=== PATIENT | female | born 1985 | race Caucasian/White ===

== ENCOUNTER 2016-12-03 12:14 | Emergency (ER) | payer OTHER ==
[~2016-12-03] VITALS: Ht 154.9 cm; Wt 88.5 kg
[~2016-12-03 12:14] MED LIST: BENZONATATE100 MG PO; CELEXA20 MG PO; CIPRO 500MG TA500 MG PO; DARVOCET-N 1001 EACH PO; ETODOLAC200 MG PO; IBUPROFEN800 MG PO; METHYLPRED DP4 MG PO; NAPROSYN 500MG500 MG PO; PHENTERMINE H37.5 MG PO; PROMETHAZINE D120 ML PO; VENTOLIN H0.09 MG/AC IH; VOLTAREN75 MG PO
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
--- OUTSIDE RECORDS SUMMARY | 2016-12-03 12:25 | External Medical Summary Rpt ---
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 Unavailable Unavailable CENTER, [facility]available Unavailable CENTER, [facility] Unavailable Unavailable INC, [facility] Unavailable Unavailable HOSPITAL, [facility] AGUILLON SURJIT, AGUILLON SURJIT Unavailable Unavailable [facility], Unavailable Unavailable [facility], [facility], Unavailable Unavailable [facility], Unavailable Unavailable [facility] Unavailable Unavailable SERVICES, [facility] O'LESLYE FABIANA, O'LESLYE Unavailable Unavailable [facility], Unavailable Unavailable [facility], [facility] Unavailable Unavailable LAB, [facility] PICKLESIMER JR RENATE, Unavailable Unavailable PICKLESIMER JR RENATE PICKLES[facility] JR RENATE, Unavailable Unavailable [facility] RENUSCH ERIKA, RENUSCH Unavailable Unavailable ERIKA [facility] Unavailable Unavailable [id number] [address] [phone], [facility] [id number] # [phone] SCHULSTAD JENIFFER, Unavailable Unavailable SCHULSTAD JENIFFER SCHULSTAD JENIFFER, Unavailable Unavailable SCHULST[facility] JENIFFER SCIFRES ANG, SCIFRES Unavailable Unavailable ANG SCIFRES ANG, SCIFRES Unavailable Unavailable ANG [facility] Unavailable Unavailable [facility] [place], [facility] [place] Purpose Continuity of Care Document - 03-04-2010 through 2016 Problems Code Diagnosis DOS Provider Status Z0100 ENCOUNTER 01-31-2016 [facility] EXAM EYES & GRE VISION W/O ABNORMAL FIND [id number] PAIN IN 01-13-2016 [place] LEFT ANKLE [facility] M7989 OTHER 01-13-2016 [place] SPECIFIED MEDICAL SOFT TISSUE IMAGING ASS DISORDERS [id number] SPRAIN UNS 01-13-2016 [facility], LEFT ANKLE PLLC INITIAL ENCOUNTER J029 ACUTE 06-16-2015 [facility] PHARYNGITIS PHYSICIANS GROUP UNSPECIFIED J209 ACUTE 06-16-2015 [facility] BRONCHITIS PHYSICIANS UNSPECIFIED GROUP J40 BRONCHITIS 06-16-2015 [facility] NOT PHYSICIANS, SPECIFIED PLLC ACUTE OR CHRONIC R05 COUGH 06-16-2015 [facility] R0602 SHORTNESS 06-16-2015 [place] OF BREATH [facility]ICAL [facility]ING ASS E6609 OTHER 06-05-2015 [facility] OBESITY DUE PHYSICIANS TO EXCESS GROUP CALORIES N926 IRREGULAR 06-05-2015 [facility] MENSTRUATIO PHYSICIANS N GROUP UNSPECIFIED R635 ABNORMAL 06-05-2015 [facility] WEIGHT GAIN PHYSICIANS GROUP J0190 ACUTE 03-06-2015 [facility] SINUSITIS [facility] 92508 OBESITY, 01-19-2015 [facility] UNSPECIFIED PHYSICIANS GROUP 4279 UNSPECIFIED 01-19-2015 [facility] CARDIAC PHYSICIANS DYSRHYTHMIA GROUP V5869 LONG-TERM 01-19-2015 [facility] (CURRENT) PHYSICIANS USE OF GROUP OTHER MEDICATIONS 3671 MYOPIA 12-19-2014 [facility] 20499 NAUSEA 09-18-2014 [facility] ALONE PHYSICIANS GROUP 44379 DIARRHEA 09-18-2014 [facility] 25594 OTHER 05-18-2014 BHARGAV CURRAN VITREOUS OPACITIES V720 EXAMINATION 10-18-2013 [facility] OF EYES GRE AND VISION V7231 ROUTINE 06-21-2013 [facility] JR RENATE AL EXAMINATION 78069 UNSPECIFIED 05-24-2013 STARR DUSTIN CONSTIPATIO N 7831 ABNORMAL 05-24-2013 [facility] DUSTIN WEIGHT GAIN 05618 ABDOMINAL 04-19-2013 ST[facility] DUSTIN PAIN, LEFT LOWER QUADRANT 72422 ABDOMINAL 03-29-2013 SCHULSTAD PAIN, JENIFFER UNSPECIFIED SITE 7802 SYNCOPE AND 03-24-2013 FALLUJI JESSICA COLLAPSE 37007 DIVERTICULO 03-23-2013 JU[facility]ON SIS OF JOSE COLON 5920 CALCULUS OF 03-23-2013 [facility] KIDNEY JOSE 36340 OTHER 03-23-2013 JUDSON NONSPECIFIC JOSE ABNORMAL FINDING OF LUNG FIELD V1272 PERSONAL 03-08-2013 SCHULSTAD HISTORY OF JENIFFER COLONIC POLYPS V160 FM HX 03-08-2013 SCHULSTAD MALIGNANT JENIFFER NEOPLASM GASTROINTES TINAL TRACT 93762 ABDOMINAL 03-07-2013 ARNOLD NISREEN PAIN, GENERALIZED 6260 ABSENCE OF 02-23-2013 [facility] 7231 CERVICALGIA 09-01-2012 JUDSON JOSE 8470 NECK SPRAIN 09-01-2012 [facility] E8889 UNSPECIFIED 09-01-2012 JUDSON FALL JOSE 6264 IRREGULAR 07-21-2012 ST[facility] DUSTIN MENSTRUAL CYCLE 2113 BENIGN 06-17-2012 SCH[facility]STAD NEOPLASM OF JENIFFER COLON 02410 UNSPECIFIED 04-21-2012 RO DUSTIN VAGINITIS AND VULVOVAGINI TIS 57684 OTHER 01-01-2011 RUFINA CHRONIC VISION ALLERGIC CONJUNCTIVI TIS V2511 ENC FOR 04-12-2010 [facility] [place] CONTRACEPT DEVICE 2662 OTHER 03-22-2010 [facility]ICIEN[facility] S V2509 OTH GENERAL 03-22-2010 [facility] HEALTH CNSL&ADVICE CENTER CONTRACEPT MANAGEMENT V7643 SCREENING 03-22-2010 [facility] NEOPLASM OF THE SKIN 486 PNEUMONIA, 03-04-2010 [facility] UNSPECIFIED SERVICES 5110 PLEURISY 03-04-2010 [facility] WITHOUT EMERGENCY MENTION SERVICES EFFUS/[place] [address] CHEST PAIN 03-04-2010 [place] UNSPECIFIED [facility]ICAL IMAGING ASS J40 BRONCHITIS, NOT [...] 80 1- 1- 00 04 KE ve ND 01 20 20 AI AM 10 11 11 D DE 1 PH RE HB AR K R MA J 40 CY MG 03 93 TA 8 BL # ET 03 93 00 10 10 12 3 RI 85 GA Ac 60 -2 -2 .0 TE 55 IN ti 35 6- 7- 00 91 EY ve 46 20 20 AI 82 10 10 D WV 8 PH CH AR AE MA L CY S 03 93 8 # 03 93 CI 65 10 10 14 7 RI 85 GA Ac ND 86 -2 -2 .0 TE 55 IN ti OF 20 6 7- 00 92 EY ve LO 07 20 20 AI XA 70 10 10 D WV CI 1 PH CH N AR AE HC MA L L CY S 50 0 03 MG 93 8 TA # B 03 93 DI 00 10 10 14 7 RI 85 GA Ac CL 78 -2 -2 .0 TE 55 IN ti OF 11 6 7- 00 93 EY ve EN 78 20 20 AI AC 90 10 10 D WV 1 PH CH SO AR AE D [...] Procedure DOS Code Location Performer Comment OPH 38472 [facility] 6 GRE GRE XM&EVAL COMPRHNSV ESTAB PT 1/> CRTS E0114 ADVANCED CHEW UNDARM 6 TECHNOLOG NANCY OTH THAN IES INC WOOD PAIR PAD TIP&HNDGR IP RADEX 05688 [place] JUDS[facility] ANKLE 6 MEDICAL JOSE COMPLETE IMAGING MINIMUM 3 ASS VIEWS THERAPEUT 41724 [facility] IC 6 PHYSICIAN RIMA PROPHYLAC S GROUP TIC/DX INJECTION SUBQ/IM PRESSURIZ 76592 [facility] ED/NONPRE 6 [facility] SSURIZED INC INC INHALATIO N TREATMENT RADIOLOGI 47017 [facility] C EXAM 6 [facility] CHEST 2 INC INC VIEWS FRONTAL&L ATERAL INJECTION J0696 [facility] 6 PHYSICIAN RIMA CEFTRIAXO S GROUP NE SODIUM PER 250 MG INJECTION J1040 [facility] 6 PHYSICIAN RIMA METHYLPRE S GROUP DNISOLONE ACETATE 80 MG IAADI 64701 [facility] ROB INFLUENZA 6 [facility] B VIRUS INC INC IAADI 82416 [facility] INFFLUENZ 6 [facility] A A VIRUS INC INC RADIOLOGI 32442 [place] GARCIA ALL C 6 MEDICAL EXAMINATI IMAGING ON CHEST ASS SINGLE VIEW FRONTAL URINE 08862 [facility] RO 6 PHYSICIAN DUSTIN TEST S GROUP VISUAL COLOR CMPRSN METHS OPHTH 03758 [facility] 5 GRE GRE XM&EVAL COMPRHNSV ESTAB PT 1/> DETERMINA 85460 [facility] GRE GRE REFRACTIV E STATE OPHTH 03960 [facility] 4 GRE GRE XM&EVAL COMPRHNSV ESTAB PT 1/> URNLS DIP 44321 RO STARR 4 DUSTIN DUSTIN STICK/TAB LET RGNT NON-AUTO W/O MICRSCP CYTP C/V 78159 PICKLESIM PICKLESIM AUTO THIN 4 ER JR RENATE ER JR RENATE LYR PREPJ SCR MNL RESCR PHYS LOCM Q9967 [facility] [phone] 3 [facility] MG/ML INC INC IODINE CONCENTRA TION PER ML 3D 65519 JU[facility] JUDSON RENDERING 3 JOSE JOSE W/INTERP& [place] [address] JUDSON JUDSON ABDOMEN & 3 JOSE JOSE PELVIS W/CONTRAS T MATERIAL GONADOTRO 92791 [facility] PIN 3 [facility] CHORIONIC INC INC QUALITATI VE RADEX 47191 [facility] SPINE 3 [facility] CERVICAL INC INC 4 OR 5 VIEWS RADEX 22576 J[facility] JUDSON SPINE 3 JOSE JOSE CERVICAL 6 OR MORE VIEWS OPHTH 12754 [facility] MEDICAL 3 GRE GRE XM&EVAL COMPRE NEW PT 1/> VST DETERMINA 79486 [facility] TION 3 GRE [place] [address] ROGER DURAN 3 JENIFFER JENIFFER W/REMOVAL [place] [address] PICKLESIM PICKLESIM SURG 3 ER JR RENATE ER JR RENATE PATHOLOGY GROSS&RIMA ROSCOPIC EXAM IMHISTOCH 83519 PICKLESIM PICKLESIM EM/CYTCHM 3 ER JR RENATE ER JR RENATE 1ST ANTIBODY STAIN PROCEDURE URINE 62902 RO STARR 3 DUSTIN DUSTIN TEST VISUAL COLOR CMPRSN METHS CYTP C/V 55700 PICKLESIM PICKLESIM AUTO THIN 3 ER JR RENATE ER JR RENATE LYR PREPJ SCR MNL RESCR PHYS URNLS DIP 61176 RO STARR 3 DUSTIN DUSTIN STICK/TAB LET RGNT NON-AUTO W/O MICRSCP SMR PRIM 64584 RO [facility]ARR SRC WET 2 DUSTIN DUSTIN MOUNT NFCT AGT OPHTH 76661 SCIFRES SCIFRES MEDICAL 2 ANG ANG XM&EVAL COMPRHNSV ESTAB PT 1/> DETERMINA 68936 SCIFRES SCIFRES TION 2 ANG ANG REFRACTIV E STATE URNLS DIP 12011 RO STARR 1 DUSTIN DUSTIN STICK/TAB LET RGNT NON-AUTO W/O MICRSCP CYTP C/V 55065 PATHOLOGY PATHOLOGY AUTO THIN 1 & & LYR CYTOLOGY CYTOLOGY PREPJ SCR LAB LAB MNL RESCR PHYS OPHTH 90019 RUFINA D[facility]ANT [facility] 1 VISION ANG XM&EVAL INTERMEDI ATE ESTAB PT OPHTH 95590 RUFINA AGUILLON [facility] 1 VISION XM&EVAL COMPRE NEW PT 1/> VST LEVONORGE J7302 [facility] STREL-RLS 0 [facility] INTRAUTER [place] N CNTRACPT 52 MG INSERTION 13136 [facility] 0 [facility]TRA[facility] OF INE [place] DEVICE IUD URINE 47873 [facility] 0 [facility] TEST CLINIC OF VISUAL [place] COLOR CMPRSN METHS URINE 71350 [facility] ROB 0 [facility] CENTER VISUAL COLOR CMPRSN METHS CYTP 35877 PATHOLOGY PATHOLOGY CERVICAL/ 0 & & VAGINAL CYTOLOGY CYTOLOGY REQ LAB LAB INTERP PHYSICIAN IADNA 86265 [facility] ROB NEISSERIA 0 [facility] CENTER GONORRHOE AE AMPLIFIED PROBE TQ DME A9900 [facility] SUP/ACCES 0 PR [employer] S/SRV-COM CENTER CENTER ISHMAEL/OTH HCPCS IADNA 62495 [facility] ROB CHLAMYDIA 0 [facility] CENTER TRACHOMAT IS AMPLIFIED PROBE TQ CYTP 50655 PATHOLOGY PATHOLOGY CERV/VAG 0 & & AUTO THIN CYTOLOGY CYTOLOGY LAYER LAB LAB PREP MNL SCREEN CONTRACEP A4267 [facility] TIVE 0 [facility] CENTER CONDOM MALE EACH URNLS DIP 36928 [facility] ROB 0 [facility] STICK/TAB INC INC LET REAGENT AUTO MICROSCOP Y BLOOD 11168 [facility] COUNT 0 [facility] COMPLETE INC INC AUTO&[place] [address] [facility] LIPASE 0 [place] [address] [facility] AMYLASE 0 [facility] INC INC COMPREHEN 82161 [facility] SIVE 0 [facility] METABOLIC INC INC PANEL RADIOLOGI 07174 D[facility] C EXAM 0 [facility] CHEST 2 INC INC VIEWS FRONTAL&[place] [address] [facility] ANGIOGRAP 0 [facility] HY CHEST INC INC W/CONTRAS T/NONCONT RAST FIBRIN 08243 [facility] [address] D[address] [facility] PRODUCTS INC INC D-DIMER QUAL/SEMI JONI URINE [address] [facility] TEST INC INC VISUAL COLOR CMPRSN METHS Encounters Encounter Start End Date Code Location Performer Type Date EMERGENCY 48417 [facility] LOVE 6 6 PHYSICIAN ERIKA [facility], [facility] T VISIT HIGH/URGE NT SEVERITY HOSPITAL [facility] - 6 6 [facility] OUTPATIEN INC T EMERGENCY 01232 [facility] 6 6 [facility] INC T VISIT LOW/MODER SEVERITY EMERGENCY 51104 FLEX GENAO DEPT 6 6 PHYSICIAN RIMA VISIT S, PLLC HIGH SEVERITY& THREAT FUNCJ OFFICE 89948 [facility] OUTPATIEN 6 6 PHYSICIAN RIMA T VISIT S GROUP 15 MINUTES OFFICE 66935 [facility] OUTPATIEN 6 6 PHYSICIAN T VISIT S GROUP 15 MINUTES OFFICE 49908 [facility] FLORES OUTPATIEN 5 5 [facility] 15 MINUTES OFFICE 23948 [facility] STARR OUTPATIEN 5 5 PHYSICIAN DUSTIN T VISIT S GROUP 15 MINUTES OFFICE 90370 [facility] FRYMAN OUTPATIEN 5 5 PHYSICIAN EUG T NEW 20 S GROUP MINUTES OFFICE 03730 SCIFRES SCIFRES OUTPATIEN 5 5 ANG ANG T VISIT 15 MINUTES PERIODIC 95325 RO STARR PREVENTIV 4 4 DUSTIN DUSTIN E MED EST PATIENT 18-39 YRS OFFICE 76987 RO STARR OUTPATIEN 4 4 DUSTIN DUSTIN T VISIT 15 MINUTES OFFICE 83038 RO STARR OUTPATIEN 3 3 DUSTIN DUSTIN T VISIT 25 MINUTES OFFICE 28364 GISSELSTNBA CHAUHANSTNBA OUTPATIEN 3 3 JENIFFER JENIFFER T VISIT 15 MINUTES OFFICE 37161 [facility] MARTI CONSULTAT 3 3 JESSICA JESSICA ION NEW/ESTAB PATIENT 60 MIN [facility]OSPITAL [facility] - 3 3 [facility] OUTPATIEN INC T OFFICE 27624 GISSELSTNBA CHAUHANSTAD OUTPATIEN 3 3 JENIFFER JENIFFER T VISIT 25 MINUTES OFFICE 96863 DILIA DOBBS OUTPATIEN 3 3 NISREEN NISREEN T VISIT 15 MINUTES HOSPITAL [facility] - 3 3 [facility] OUTPATIEN INC T OFFICE 29907 RO STARR OUTPATIEN 3 3 DUSTIN DUSTIN T VISIT 15 MINUTES OFFICE 55326 RO STARR OUTPATIEN 3 3 DUSTIN DUSTIN T VISIT 15 MINUTES OFFICE 58349 RO STARR OUTPATIEN 3 3 DUSTIN DUSTNI T VISIT 15 MINUTES Emergency JOHN BENAVIDEZ MD (ER) 3 09:46 3 11:33 [facility] EMERGENCY 29321 [facility] 3 3 [facility] DEPARTMEN INC T VISIT LOW/MODER SEVERITY EMERGENCY 62684 [facility] BENAVIDEZ 3 3 EMERGENCY [facility] SERVICES T VISIT HIGH/URGE NT SEVERITY HOSPITAL [facility] - 3 3 [facility] OUTPATIEN INC T OFFICE 49030 RO STARR OUTPATIEN 3 3 DUSTIN DUSTIN T VISIT 15 MINUTES OFFICE 07848 RO STARR OUTPATIEN 3 3 DUSTIN DUSTIN T VISIT 15 MINUTES OFFICE 79539 GISSELSTNBA CHAUHANSTAD OUTPATIEN 3 3 JENIFFER JENIFFER T VISIT 10 MINUTES HOSPITAL [facility] - 3 3 [facility] OUTPATIEN INC T OFFICE 96114 RO [facility] OUTPATIEN 3 3 DUSTIN DUSTIN T VISIT 15 MINUTES OFFICE 80888 DILIA DOBBS OUTPATIEN 3 3 NISREEN NISREEN T NEW 30 MINUTES PERIODIC 55049 RO STARR PREVENTIV 3 3 DUSTIN DUSTIN E MED EST PATIENT 18-39 YRS OFFICE 74962 RO STARR OUTPATIEN 2 2 DUSTIN DUSTIN T VISIT 15 MINUTES OFFICE 79295 RO STARR OUTPATIEN 2 2 DUSTIN DUSTIN T VISIT 15 MINUTES OFFICE 69788 RO STARR OUTPATIEN 2 2 DUSTIN DUSTIN T VISIT 15 MINUTES OFFICE 00636 RO STARR OUTPATIEN 2 2 DUSTIN DUSTIN T VISIT 15 MINUTES OFFICE 44924 RO STARR OUTPATIEN 2 2 DUSTIN DUSTIN T VISIT 15 MINUTES OFFICE 78219 RO STARR OUTPATIEN 2 2 DUSTIN DUSTIN T VISIT 15 MINUTES OFFICE 69932 RO [facility]ARR OUTPATIEN 2 2 DUSTIN DUSTIN T VISIT 15 MINUTES PERIODIC 96518 RO STARR PREVENTIV 1 1 DUSTIN DUSTIN E MED EST PATIENT 18-39 YRS OFFICE 72060 RUFINA EDDY OUTPATIEN 1 1 VISION T VISIT 10 MINUTES INITIAL 56441 [facility] ROB PREVENTIV 0 0 [facility] OUTPATIEN INC T EMERGENCY 47081 [facility] DEPT 0 0 [facility] VISIT INC HIGH SEVERITY& THREAT FUNCJ EMERGENCY 84752 [facility] GENAO DEPT 0 0 EMERGENCY RIMA VISIT SERVICES HIGH SEVERITY& THREAT FUNCJ
--- OUTSIDE RECORDS SUMMARY | 2016-12-03 12:27 | External Medical Summary Rpt ---
Author Author , HAYLEY HARDY Address Unknown Phone [email or web address] Providers Care Hedis Review Nurse Name Role Phone ARNNANI NISREEN, ARNOLD Unavailable Unavailable NISREEN ARNOLD NISREEN, [...] RIMA CHEW NANCY, CHEW Unavailable Unavailable NANCY [facility] Unavailable Unavailable CENTER, [facility] Unavailable [facility]available CENTER, [facility] Unavailable Unavailable INC, [facility] Unavailable Unavailable HOSPITAL, [facility] AGUILLON SURJIT, [facility] Unavailable Unavailable [facility], [facility]available Unavailable [facility] Unavailable Unavailable IM[facility]ING [facility], [facility], Unavailable Unavailable [facility], Unavailable Unavailable [facility] Unavailable Unavailable SERVICES, [facility] O'LESLYE FABIANA, O'LESLYE Unavailable Unavailable [facility], Unavailable Unavailable [facility], [facility] Unavailable Unavailable LAB, [facility] PICKLESIMER JR RENATE, Unavailable Unavailable PICKLESIMER JR RENATE P[facility] JR REN[facility], Unavailable Unavailable [facility] RENUSCH ERIKA, RENUSCH Unavailable Unavailable ERIKA [facility] Unavailable Unavailable [phone] [address] [phone], [facility] [phone] # [phone] SCHULSTAD JENIFFER, Unavailable Unavailable SCHULSTAD JENIFFER SCHULSTAD JENIFFER, Unavailable Unavailable SCHULSTAD JENIFFER SCIFRES ANG, SCIFRES Unavailable Unavailable ANG SCIFRES ANG, SCIFRES Unavailable Unavailable ANG [facility] Unavailable [place]available [place], [facility] [place] Purpose Continuity of Care Document - 03-04-2010 through 2016 Problems Code Diagnosis DOS Provider Status Z0100 ENCOUNTER 01-31-2016 [facility] EXAM EYES & GRE VISION W/O ABNORMAL FIND [id number] PAIN IN 01-13-2016 [facility] LEFT ANKLE [facility] M7989 OTHER 01-13-2016 [facility] SPECIFIED MEDICAL SOFT TISSUE IMAGING ASS DISORDERS [id number] SPRAIN UNS 01-13-2016 [facility], LEFT ANKLE PLLC INITIAL ENCOUNTER J029 ACUTE 06-16-2015 [facility] PHARYNGITIS [facility]YS[facility]ANS GROUP UNSPECIFIED J209 ACUTE 06-16-2015 [facility] BRONCHITIS PHYSICIANS UNSPECIFIED GROUP J40 BRONCHITIS 06-16-2015 [facility] NOT PHYSICIANS, SPECIFIED PLLC ACUTE OR CHRONIC R05 COUGH 06-16-2015 [facility] R0602 SHORTNESS 06-16-2015 [facility] OF BREATH [facility]ICAL [facility] E6609 OTHER 06-05-2015 [facility] OBESITY DUE PHYSICIANS TO EXCESS GROUP CALORIES N926 IRREGULAR 06-05-2015 [facility] MENSTRUATIO PHYSICIANS N GROUP UNSPECIFIED R635 ABNORMAL 06-05-2015 [facility] WEIGHT GAIN PHYSICIANS GROUP J0190 ACUTE 03-06-2015 [facility] 7[address]31 OBESITY, 01-19-2015 [facility] UNSPECIFIED PHYSICIANS GROUP 4279 UNSPECIFIED 01-19-2015 [facility] CARDIAC PHYSICIANS DYSRHYTHMIA GROUP V5869 LONG-TERM 01-19-2015 [facility] (CURRENT) PHYSICIANS USE OF GROUP OTHER MEDICATIONS 3671 MYOPIA 12-19-2014 [facility] 88966 NAUSEA 09-18-2014 [facility] ALONE PHYSICIANS GROUP 57050 DIARRHEA 09-18-2014 [facility] 50821 OTHER 05-18-2014 SCIFRES ANG VITREOUS OPACITIES V720 EXAMINATION 10-18-2013 [facility] OF EYES GRE AND VISION V7231 ROUTINE 06-21-2013 [facility] GYNEC[facility] JR RENATE AL EXAMINATION 58338 UNSPECIFIED 05-24-2013 ST[facility] DUSTIN CONSTIPATIO N 7831 ABNORMAL 05-24-2013 [facility] WEIGHT GAIN 15485 ABDOMINAL 04-19-2013 ST[facility] DUSTIN PAIN, LEFT LOWER QUADRANT 46988 ABDOMINAL 03-29-2013 SCHULSTAD PAIN, JENIFFER UNSPECIFIED SITE 7802 SYNCOPE AND 03-24-2013 FALLUJI JESSICA COLLAPSE 45935 DIVERTICULO 03-23-2013 JUDSON SIS OF JOSE COLON 5920 CALCULUS OF 03-23-2013 [facility] KIDNEY JOSE 71417 OTHER 03-23-2013 JUDSON NONSPECIFIC JOSE ABNORMAL FINDING OF LUNG FIELD V1272 PERSONAL 03-08-2013 SCHULSTAD HISTORY OF JENIFFER COLONIC POLYPS V160 FM HX 03-08-2013 SCHULSTAD MALIGNANT JENIFFER NEOPLASM GASTROINTES TINAL TRACT 91609 ABDOMINAL 03-07-2013 ARNOLD NISREEN PAIN, GENERALIZED 6260 ABSENCE OF 02-23-2013 [facility] 7231 CERVICALGIA 09-01-2012 JUDSON JOSE 8470 NECK SPRAIN 09-01-2012 [facility] E8889 UNSPECIFIED 09-01-2012 JUDSON FALL JOSE 6264 IRREGULAR 07-21-2012 [facility] DUSTIN MENSTRUAL CYCLE 2113 BENIGN 06-17-2012 [facility] NEOPLASM OF JENIFFER COLON 86392 UNSPECIFIED 04-21-2012 [facility] DUST[facility] VAGINITIS AND VULVOVAGINI TIS 81898 OTHER 01-01-2011 RUFINA CHRONIC VISION ALLERGIC CONJUNCTIVI TIS V2511 ENC FOR 04-12-2010 [facility] [place] CONTRACEPT DEVICE 2662 OTHER 03-22-2010 [facility] B-COMPLEX HEALTH DEFICIENCIE CENTER S V2509 OTH GENERAL 03-22-2010 [facility] HEALTH CNSL&ADVICE CENTER CONTRACEPT MANAGEMENT V7643 SCREENING 03-22-2010 [facility] MALIGNANT CENTER NEOPLASM OF THE SKIN 486 PNEUMONIA, 03-04-2010 [facility] UNSPECIFIED SERVICES 5110 PLEURISY 03-04-2010 [facility] WITHOUT EMERGENCY MENTION SERVICES EFFUS/[place] [address] CHEST PAIN 03-04-2010 [facility] UNSPECIFIED [facility]ICAL [facility]ING ASS Medications Na ND Rx Da Fi Fi [...] T AR A EY MA E CY DR OP 03 S 93 8 # 03 93 PA 00 08 08 5 5. 10 RI 89 SC Ac TA 06 -0 -0 00 TE 35 IF ti NO 50 4- 4- 0 58 RE ve L 27 20 20 AI S 0. 10 11 11 D AN 1% 5 PH GE AR LA EY MA M E CY DR OP 03 S 93 8 # 03 [...] 80 1- 1- 00 04 KE ve TX 01 20 20 AI AM 10 11 11 D DE 1 PH RE HB AR K R MA J 40 CY MG 03 93 TA 8 BL # ET 03 93 00 10 10 12 3 RI 85 GA Ac 60 -2 -2 .0 TE 55 IN ti 35 6- 7- 00 91 EY ve 46 20 20 AI 82 10 10 D AL 8 PH CH AR AE MA L CY S 03 93 8 # 03 93 CI 65 10 10 14 7 RI 85 GA Ac TX 86 -2 -2 .0 TE 55 IN ti OF 20 6- 7- 00 92 EY ve LO 07 20 20 AI XA 70 10 10 D AL CI 1 PH CH N AR AE HC MA L L CY S 50 0 03 MG 93 8 TA # B 03 93 DI 00 10 10 14 7 RI 85 GA Ac CL 78 -2 -2 .0 TE 55 IN ti OF 11 6- 7- 00 93 EY ve EN 78 20 20 AI AC 90 10 10 D AL 1 PH CH SO AR AE D MA L EC CY S 75 03 93 MG 8 # TA 03 B 93 Procedures Procedure DOS Code Location Performer Comment OPHTH 31381 [facility] 6 GRE GRE XM&EVAL COMPRHNSV ESTAB PT 1/> RADEX 75617 [facility] JUDSON ANKLE 6 MEDICAL JOSE COMPLETE IMAGING MINIMUM 3 ASS VIEWS CRTCHS E0114 [facility] 6 TECHNOLOG NANCY OTH THAN IES INC WOOD PAIR PAD TIP&HNDGR IP PRESSURIZ 63949 [facility] ED/NONPRE 6 [facility] SSURIZED INC INC INHALATIO N TREATMENT IAADI 37202 [facility] INFLUENZA 6 [facility] B VIRUS INC INC IAADI 35858 [facility] INFFLUENZ 6 [facility] A A VIRUS INC INC RADIOLOGI 17604 [facility] C EXAM 6 [facility] CHEST 2 INC INC VIEWS FRONTAL&L ATERAL THERAPEUT 35168 [facility] GOYO IC 6 PHYSICIAN RIMA PROPHYLAC S GROUP TIC/DX INJECTION SUBQ/IM RADIOLOGI 66523 [facility] GARCIA ALL C 6 MEDICAL EXAMINATI IMAGING ON CHEST ASS SINGLE VIEW FRONTAL INJECTION J0696 [facility] GO[facility]O 6 PHYSICIAN RIMA CEFTRIAXO S GROUP NE SODIUM PER 250 [facility] IN[facility]1040 [facility] METHYLPRE S GROUP DNISOLONE ACETATE 80 MG URINE 85204 [facility] STARR 6 PHYSICIAN DUSTIN TEST S GROUP VISUAL COLOR CMPRSN METHS OPHTH 63610 [facility] 5 GRE GRE XM&EVAL COMPRHNSV ESTAB PT 1/> OPHTH 18022 [facility] 4 GRE GRE XM&EVAL COMPRHNSV ESTAB PT 1/> DETERMINA 58983 [facility] TION 4 GRE GRE REFRACTIV E STATE URNLS DIP 09589 RO STARR 4 DUSTIN DUSTIN STICK/TAB LET RGNT NON-AUTO W/O MICRSCP CYTP C/V 22792 PICKLESIM PICKLESIM AUTO THIN 4 ER JR RENATE ER JR RENATE LYR PREPJ SCR MNL RESCR PHYS 3D 29304 JU[facility] JUDSON RENDERING 3 JOSE JOSE W/INTERP& POSTPROC DIFF WORK STATION LOC Q9967 [facility] [phone] 3 [facility] MG/ML INC [place] [address] [facility] ABDOMEN & 3 [facility] PELVIS INC INC W/CONTRAS T MATERIAL GONADOTRO 46569 [facility] PIN 3 [facility] CHORIONIC INC INC QUALITATI VE RADEX 88227 J[facility]ON JUDSON SPINE 3 JOSE JOSE CERVICAL 6 OR MORE VIEWS RADEX 67959 [facility] SPINE 3 [facility] CERVICAL INC INC 4 OR 5 VIEWS DETERMINA 81741 [facility] TION 3 GRE GRE REFRACTIV E STATE OPHTH 07018 [facility] 3 GRE GRE XM&EVAL COMPRE NEW PT 1/> VST COLSC FLX 88680 [facility] ROB 3 [facility] W/REMOVAL INC [place] [address] PICKLESIM PICKLESIM SURG 3 ER JR RENATE ER JR RENATE PATHOLOGY GROSS&RIMA ROSCOPIC EXAM IMHISTOCH 70213 PICKLESIM PICKLESIM EM/CYTCHM 3 ER JR RENATE ER JR RENATE 1ST ANTIBODY STAIN PROCEDURE URINE 66290 RO STARR 3 DUSTIN DUSTIN TEST VISUAL COLOR CMPRSN METHS URNLS DIP 27699 RO STARR 3 DUSTIN DUSTIN STICK/TAB LET RGNT NON-AUTO W/O MICRSCP CYTP C/V 35955 PICKLESIM PICKLESIM AUTO THIN 3 ER JR RENATE ER JR RENATE LYR PREPJ SCR MNL RESCR PHYS SMR PRIM 66401 RO [facility] SRC WET 2 DUSTIN DUSTIN [facility] A[facility] OPHTH 49105 [facility] 2 ANG ANG XM&EVAL COMPRHNSV ESTAB PT 1/> DETERMINA 21140 [facility] TION 2 ANG ANG REFRACTIV E STATE URNLS DIP 88118 RO STARR 1 DUSTIN DUSTIN STICK/TAB LET RGNT NON-AUTO W/O MICRSCP CYTP C/V 72251 PATHOLOGY PATHOLOGY AUTO THIN 1 & & LYR CYTOLOGY CYTOLOGY PREPJ SCR LAB LAB MNL RESCR PHYS OPHTH 88545 [facility] 1 VISION ANG XM&EVAL INTERMEDI ATE ESTAB PT OPHTH 09994 [facility] 1 VISION XM&EVAL COMPRE NEW PT 1/> VST URINE 71065 [facility] TEST CLINIC OF VISUAL [place] COLOR CMPRSN METHS INSERTION 30234 [facility] INTRAUTER CLINIC OF INE [place] DEVICE IUD LEVONORGE J7302 W[facility] STREL-RLS 0 [facility] E CLINIC OF INTRAUTER [place] N CNTRACPT 52 MG CONTRACEP A4267 [facility] TIVE 0 [facility] CONDOM MALE EACH IADNA 46593 [facility] CHLAMYDIA 0 [facility] C[facility] CENTER TRACHOMAT IS AMPLIFIED PROBE TQ CYTP 27223 PATHOLOGY PATHOLOGY CERV/VAG 0 & & AUTO THIN CYTOLOGY CYTOLOGY LAYER LAB LAB PREP MNL SCREEN URINE 65966 [facility] 0 [facility] CENTER VISUAL COLOR CMPRSN METHS DME A9900 [facility] SUP/ACCES 0 [facility] S/SRV-COM C[facility] CENTER ISHMAEL/OTH HCPCS CYTP 71369 PATHOLOGY PATHOLOGY CERVICAL/ 0 & & VAGINAL CYTOLOGY CYTOLOGY REQ LAB LAB INTERP PHYSICIAN IADNA 99298 [facility] NEISSERIA 0 [facility] CENTER GONORRHOE AE AMPLIFIED PROBE TQ RADIOLOGI 73137 [facility] C EXAM 0 MEDICAL OJSE CHEST 2 IMAGING VIEWS ASS FRONTAL&L ATERAL COMPREHEN 02978 [facility] SIVE 0 [facility] [address] [facility] AMYLASE 0 [place] [address] [facility] ANGIOGRAP 0 MEDICAL JOSE HY CHEST IMAGING W/CONTRAS ASS T/NONCONT RAST FIBRIN 44132 [facility] ANDERSONON DGRADJ 0 [facility] INC D-DIMER QUAL/SEMI JONI URNLS DIP 05110 [facility] ANDERSONON 0 [facility] STICK/TAB INC INC LET REAGENT AUTO MICROSCOP Y BLOOD 25642 [facility] COUNT 0 [facility] COMPLETE INC INC AUTO&[place] [address] [facility] LIPASE 0 [facility] INC URINE 71231 [facility] ROB 0 [facility] TEST INC INC VISUAL COLOR CMPRSN METHS Encounters Encounter Start End Date Code Location Performer Type Date EMERGENCY 89151 [facility] LOVE 6 6 PHYSICIAN ERIKA DEPARTMEN S, [facility] T VISIT HIGH/URGE NT SEVERITY EMERGENCY 86149 [facility] GENAO DEPT 6 6 PHYSICIAN RIMA [facility], [facility] - 6 6 [facility] OUTPATIEN INC T OFFICE 92374 [facility] GOYO OUTPATIEN 6 6 PHYSICIAN RIMA T VISIT S GROUP 15 MINUTES EMERGENCY 21126 [facility] 6 6 [facility] T VISIT LOW/MODER SEVERITY OFFICE 28646 [facility] OUTPATIEN 6 6 PHYSICIAN T VISIT S GROUP 15 MINUTES OFFICE 99763 [facility] FLORES OUTPATIEN 5 5 [facility] 15 MINUTES OFFICE 68835 [facility] RO OUTPATIEN 5 5 PHYSICIAN DUSTIN T VISIT S GROUP 15 MINUTES OFFICE 89271 [facility] FRYMAN OUTPATIEN 5 5 PHYSICIAN EUG T NEW 20 S GROUP MINUTES OFFICE 93807 SCIFRES SCIFRES OUTPATIEN 5 5 ANG ANG T VISIT 15 MINUTES PERIODIC 69577 [facility] PREVENTIV 4 4 DUSTIN DUSTIN E MED EST PATIENT 18-39 YRS OFFICE 17450 RO [facility] OUTPATIEN 4 4 DUSTIN DUSTIN T VISIT 15 MINUTES OFFICE 72664 [facility] OUTPATIEN 3 3 DUSTIN DUSTIN T VISIT 25 MINUTES OFFICE 38544 SCHULSTAD SCHULSTAD OUTPATIEN 3 3 JENIFFER JENIFFER T VISIT 15 MINUTES OFFICE 95158 FALLUJI FALLUJI CONSULTAT 3 3 JESSICA JESSICA ION NEW/ESTAB PATIENT 60 MIN [facility]OSPITAL [facility] - 3 3 [facility] OUTPATIEN INC T OFFICE 10323 ROGER DURAN OUTPATIEN 3 3 JENIFFER JENIFFER T VISIT 25 MINUTES OFFICE 16140 DILIA DOBBS OUTPATIEN 3 3 NISREEN NISREEN T VISIT 15 MINUTES HOSPITAL [facility] - 3 3 [facility] OUTPATIEN INC T OFFICE 43388 [facility] ST[facility] OUTPATIEN 3 3 DUSTIN DUSTIN T VISIT 15 MINUTES OFFICE 73919 RO STARR OUTPATIEN 3 3 DUSTIN DUSTIN T VISIT 15 MINUTES OFFICE 21528 RO STARR OUTPATIEN 3 3 DUSTIN DUSTIN T VISIT 15 MINUTES EMERGENCY 45113 [facility] BENAVIDEZ 3 3 EMERGENCY FABIANA [facility] SERVICES T VISIT HIGH/URGE NT SEVERITY EMERGENCY 37265 [facility] 3 3 [facility] DEPARTMEN INC T VISIT LOW/MODER SEVERITY HOSPITAL [facility] - 3 3 [facility] OUTPATIEN INC T OFFICE 81437 [facility] OUTPATIEN 3 3 DUSTIN DUSTIN T VISIT 15 MINUTES OFFICE 65022 [facility] OUTPATIEN 3 3 DUSTIN DUSTIN T VISIT 15 MINUTES OFFICE 09600 ROGER DURAN OUTPATIEN 3 3 JENIFFER JENIFFER T VISIT 10 MINUTES HOSPITAL [facility] - 3 3 [facility] OUTPATIEN INC T OFFICE 48936 [facility] OUTPATIEN 3 3 DUSTIN DUSTIN T VISIT 15 MINUTES OFFICE 17263 DILIA DOBBS OUTPATIEN 3 3 NISREEN NISREEN T NEW 30 MINUTES PERIODIC 62135 RO [facility] PREVENTIV 3 3 DUSTIN DUSTIN E MED EST PATIENT 18-39 YRS OFFICE 34551 RO [facility] OUTPATIEN 2 2 DUSTIN DUSTIN T VISIT 15 MINUTES OFFICE 22219 [facility] OUTPATIEN 2 2 DUSTIN DUSTIN T VISIT 15 MINUTES OFFICE 79539 [facility] OUTPATIEN 2 2 DUSTIN DUSTIN T VISIT 15 MINUTES OFFICE 18175 [facility] OUTPATIEN 2 2 DUSTIN DUSTIN T VISIT 15 MINUTES OFFICE 12585 [facility] STARR OUTPATIEN 2 2 DUSTIN DUSTIN T VISIT 15 MINUTES OFFICE 66670 [facility] OUTPATIEN 2 2 DUSTIN DUSTIN T VISIT 15 MINUTES OFFICE 53161 RO [facility] OUTPATIEN 2 2 DUSTIN DUSTIN T VISIT 15 MINUTES PERIODIC 67717 RO [facility] PREVENTIV 1 1 DUSTIN DUSTIN E MED EST PATIENT 18-39 YRS OFFICE 67952 RUFINA AGUILLONROBEROT EDDY OUTPATIEN 1 1 VISION T VISIT 10 MINUTES INITIAL 15809 [facility] PREVENTIV 0 0 [facility] MEDICINE NEW PT AGE 18-39YRS EMERGENCY 51754 [facility] DEPT 0 0 [facility] VISIT INC HIGH SEVERITY& THREAT FUN EMERGENCY 74046 [facility] GENAO DEPT 0 0 EMERGENCY RIMA VISIT SERVICES HIGH SEVERITY& THREAT [facility] - 0 0 [facility] OUTPATIEN INC T
--- OUTSIDE RECORDS SUMMARY | 2016-12-03 12:27 | External Medical Summary Rpt ---
Author Author , HAYLEY HARDY Address Unknown Phone [email or web address] Care Team Providers Care Managing Jeweler Name Role Phone ARNNANI NISREEN, ARNOLD Unavailable [...] RIMA CHEW NANCY, CHEW Unavailable Unavailable NANCY [facility] Unavailable Unavailable CENTER, [facility] Unavailable Unavailable CENTER, [facility] Unavailable Unavailable INC, [facility] Unavailable Unavailable HOSPITAL, [facility] AGUILLON SURJIT, AGUILLON SURJIT Unavailable Unavailable [facility], Unavailable Unavailable [facility] Unavailable Unavailable IMAGING [facility], [facility], Unavailable Unavailable [facility], Unavailable Unavailable [facility] Unavailable Unavailable SERVICES, [facility] O'LESLYE FABIANA, O'LESLYE Unavailable Unavailable [facility], Unavailable Unavailable [facility], [facility] Unavailable Unavailable LAB, [facility] PICKLESIMER JR RENATE, Unavailable Unavailable PICKLESIMER JR RENATE [facility] REN[facility], Unavailable Unavailable [facility] RENUSCH ERIKA, RENUSCH Unavailable Unavailable ERIKA [facility] Unavailable Unavailable [id number] # [id number], [facility] [address] # [phone] SCHULSTAD JENIFFER, Unavailable Unavailable SCHULSTAD JENIFFER SCHULSTAD JENIFFER, Unavailable Unavailable SCHULST[facility] JENIFFER SCIFRES ANG, SCIFRES Unavailable Unavailable ANG SCIFRES ANG, SCIFRES Unavailable Unavailable ANG [facility] [place] [facility] [place], [facility] [place] Purpose Continuity of Care Document - 03-04-2010 through 2016 Problems Code Diagnosis DOS Provider Status Z0100 ENCOUNTER 01-31-2016 [facility] EXAM EYES & GRE VISION W/O ABNORMAL FIND [id number] PAIN IN 01-13-2016 [place] LEFT ANKLE [facility] M7989 OTHER 01-13-2016 [place] SPECIFIED MEDICAL SOFT TISSUE IMAGING ASS DISORDERS [id number] SPRAIN UNS 01-13-2016 [facility], LEFT ANKLE PLLC INITIAL ENCOUNTER J029 ACUTE 06-16-2015 [facility] PHARYNGITIS PHYSICIANS GROUP UNSPECIFIED J209 ACUTE 06-16-2015 [facility] BRONCHITIS PHYSICIANS UNSPECIFIED GROUP J40 BRONCHITIS 06-16-2015 [facility] NOT PHYSICIANS, SPECIFIED PLLC ACUTE OR CHRONIC R05 COUGH 06-16-2015 [facility] R0602 SHORTNESS 06-16-2015 [place] OF BREATH [facility] E6609 OTHER 06-05-2015 [facility] OBESITY DUE PHYSICIANS TO EXCESS GROUP CALORIES N926 IRREGULAR 06-05-2015 [facility] MENSTRUATIO PHYSICIANS N GROUP UNSPECIFIED R635 ABNORMAL 06-05-2015 [facility] WEIGHT GAIN PHYSICIANS GROUP J0190 ACUTE 03-06-2015 [facility] [address]181 OBESITY, 01-19-2015 [facility] UNSPECIFIED PHYSICIANS GROUP 4279 UNSPECIFIED 01-19-2015 [facility] CARDIAC PHYSICIANS DYSRHYTHMIA GROUP V5869 LONG-TERM 01-19-2015 [facility] (CURRENT) PHYSICIANS USE OF GROUP OTHER MEDICATIONS 3671 MYOPIA 12-19-2014 [facility] 50910 NAUSEA 09-18-2014 [facility] ALONE PHYSICIANS GROUP 58938 DIARRHEA 09-18-2014 [facility] 57836 OTHER 05-18-2014 SCIFRES ANG VITREOUS OPACITIES V720 EXAMINATION 10-18-2013 [facility] OF EYES GRE AND VISION V7231 ROUTINE 06-21-2013 [facility] JR RENATE AL EXAMINATION 79641 UNSPECIFIED 05-24-2013 ST[facility] DUSTIN CONSTIPATIO N 7831 ABNORMAL 05-24-2013 [facility] D[facility] WEIGHT GAIN 07069 ABDOMINAL 04-19-2013 [facility] DUSTIN PAIN, LEFT LOWER QUADRANT 83286 ABDOMINAL 03-29-2013 SCHULSTAD PAIN, JENIFFER UNSPECIFIED SITE 7802 SYNCOPE AND 03-24-2013 FALLUJI JESSICA COLLAPSE 25373 DIVERTICULO 03-23-2013 JUDSON SIS OF JOSE COLON 5920 CALCULUS OF 03-23-2013 J[facility] KIDNEY JOSE 39419 OTHER 03-23-2013 JUDSON NONSPECIFIC JOSE ABNORMAL FINDING OF LUNG FIELD V1272 PERSONAL 03-08-2013 SCHULSTAD HISTORY OF JENIFFER COLONIC POLYPS V160 FM HX 03-08-2013 SCHULSTAD MALIGNANT JENIFFER NEOPLASM GASTROINTES TINAL TRACT 63931 ABDOMINAL 03-07-2013 ARNOLD NISREEN PAIN, GENERALIZED 6260 ABSENCE OF 02-23-2013 [facility] 7231 CERVICALGIA 09-01-2012 JUDSON JOSE 8470 NECK SPRAIN 09-01-2012 [facility] EMERGENCY SERVICES E8889 UNSPECIFIED 09-01-2012 JUDSON FALL JOSE 6264 IRREGULAR 07-21-2012 [facility] DUSTIN MENSTRUAL CYCLE 2113 BENIGN 06-17-2012 SCH[facility]STAD NEOPLASM OF JENIFFER COLON 94001 UNSPECIFIED 04-21-2012 [facility] DUSTIN VAGINITIS AND VULVOVAGINI TIS 30398 OTHER 01-01-2011 RUFINA CHRONIC VISION ALLERGIC CONJUNCTIVI TIS V2511 ENC FOR 04-12-2010 [facility] [place] CONTRACEPT DEVICE 2662 OTHER 03-22-2010 [facility] S V2509 OTH GENERAL 03-22-2010 [facility] CONTRACEPT MANAGEMENT V7643 SCREENING 03-22-2010 [facility] NEOPLASM OF THE SKIN 486 PNEUMONIA, 03-04-2010 [facility] UNSPECIFIED SERVICES 5110 PLEURISY 03-04-2010 [facility] WITHOUT EMERGENCY MENTION SERVICES EFFUS/[place] [address] CHEST PAIN 03-04-2010 [place] UNSPECIFIED [facility]ICAL IMAGING ASS Medications Na ND [...] 80 1- 1- 00 04 KE ve NH 01 20 20 AI AM 10 11 11 D DE 1 PH RE HB AR K R MA J 40 CY MG 03 93 TA 8 BL # ET 03 93 00 10 10 12 3 RI 85 GA Ac 60 -2 -2 .0 TE 55 IN ti 35 6- 7- 00 91 EY ve 46 20 20 AI 82 10 10 D PR 8 PH CH AR AE MA L CY S 03 93 8 # 03 93 CI 65 10 10 14 7 RI 85 GA Ac NH 86 -2 -2 .0 TE 55 IN ti OF 20 6- 7- 00 92 EY ve LO 07 20 20 AI XA 70 10 10 D PR CI 1 PH CH N AR AE HC MA L L CY S 50 0 03 MG 93 8 TA # B 03 93 DI 00 10 10 14 7 RI 85 GA Ac CL 78 -2 -2 .0 TE 55 IN ti OF 11 6- 7- 00 93 EY ve EN 78 20 20 AI AC 90 10 10 D PR 1 PH CH SO AR AE D MA L EC CY S 75 03 93 MG 8 # TA 03 B 93 Procedures Procedure DOS Code Location Performer Comment OPHTH 33105 [facility] 6 GRE GRE XM&EVAL COMPRHNSV ESTAB PT 1/> RADEX 19784 [place] JU[facility] ANKLE 6 MEDICAL JOSE COMPLETE IMAGING MINIMUM 3 ASS VIEWS CRTCHS E0114 ADVANCED CHEW UNDARM 6 TECHNOLOG NANCY OTH THAN IES INC WOOD PAIR PAD TIP&HNDGR IP PRESSURIZ 63549 [facility] ED/NONPRE 6 [facility] SSURIZED INC INC INHALATIO N TREATMENT IAADI 29245 [facility] INFLUENZA 6 [facility] B VIRUS INC INC IAADI 92198 [facility] INFFLUENZ 6 [facility] A A VIRUS INC INC RADIOLOGI 26594 [facility] C EXAM 6 [facility] CHEST 2 INC INC VIEWS FRONTAL&L ATERAL THERAPEUT 66072 [facility] GOY[facility] IC 6 PHYSICIAN RIMA PROPHYLAC S GROUP TIC/DX INJECTION SUBQ/IM RADIOLOGI 73653 [place] GARCIA ALL C 6 MEDICAL EXAMINATI IMAGING ON CHEST ASS SINGLE VIEW FRONTAL INJECTION J0696 [facility] GO[facility] 6 PHYSICIAN RIMA CEFTRIAXO S GROUP NE SODIUM PER 250 MG INJECTION J1040 [facility] UN[facility]RON 6 PHYSICIAN RIMA METHYLPRE S GROUP DNISOLONE ACETATE 80 MG URINE 32139 [facility] STARR 6 PHYSICIAN DUSTIN TEST S GROUP VISUAL COLOR CMPRSN METHS OPHTH 01196 [facility] 5 GRE GRE XM&EVAL COMPRHNSV ESTAB PT 1/> OPHTH 38166 [facility] 4 GRE GRE XM&EVAL COMPRHNSV ESTAB PT 1/> DETERMINA 82891 [facility] TION 4 GRE GRE REFRACTIV E STATE URNLS DIP 91700 RO STARR 4 DUSTIN DUSTIN STICK/TAB LET RGNT NON-AUTO W/O MICRSCP CYTP C/V 42261 PICKLESIM PICKLESIM AUTO THIN 4 ER JR RENATE ER JR RENATE LYR PREPJ SCR MNL RESCR PHYS 3D 09744 [facility] JUDSON RENDERING 3 JOSE JOSE W/INTERP& POSTPROC DIFF WORK STATION LOC Q9967 [facility] [phone] 3 [facility] MG/ML INC [place] [address] [facility] ABDOMEN & 3 [facility] PELVIS INC INC W/CONTRAS T MATERIAL GONADOTRO 11640 [facility] PIN 3 [facility] CHORIONIC INC INC QUALITATI VE RADEX 85322 J[facility] JUDSON SPINE 3 JOSE JOSE CERVICAL 6 OR MORE VIEWS RADEX 96838 [facility] SPINE 3 [facility] CERVICAL INC INC 4 OR 5 VIEWS DETERMINA 98463 [facility] TION 3 GRE GRE REFRACTIV E STATE OPHTH 27487 [facility] [place] 3 GRE GRE XM&EVAL COMPRE NEW PT 1/> VST COLSC FLX 76855 [facility] ROB 3 [facility] W/REMOVAL INC [place] [address] PICKLESIM PICKLESIM SURG 3 ER JR RENATE ER JR RENATE PATHOLOGY GROSS&RIMA ROSCOPIC EXAM IMHISTOCH 99423 PICKLESIM PICKLESIM EM/CYTCHM 3 ER JR RENATE ER JR RENATE 1ST ANTIBODY STAIN PROCEDURE URINE 09073 RO STARR 3 DUSTIN DUSTIN TEST VISUAL COLOR CMPRSN METHS URNLS DIP 25871 RO STARR 3 DUSTIN DUSTIN STICK/TAB LET RGNT NON-AUTO W/O MICRSCP CYTP C/V 95882 PICKLESIM PICKLESIM AUTO THIN 3 ER JR RENATE ER JR RENATE LYR PREPJ SCR MNL RESCR PHYS SMR PRIM 10007 RO [facility] SRC WET 2 DUSTIN DUSTIN [facility] AGT OPHTH 79635 [facility] 2 ANG ANG XM&EVAL COMPRHNSV ESTAB PT 1/> DETERMINA 16871 [facility] TION 2 ANG ANG REFRACTIV E STATE URNLS DIP 54901 RO STARR 1 DUSTIN DUSTIN STICK/TAB LET RGNT NON-AUTO W/O MICRSCP CYTP C/V 51201 PATHOLOGY PATHOLOGY AUTO THIN 1 & & LYR CYTOLOGY CYTOLOGY PREPJ SCR LAB LAB MNL RESCR PHYS OPHTH 83257 [facility] 1 VISION ANG XM&EVAL INTERMEDI ATE ESTAB PT OPHTH 42283 [facility] 1 VISION XM&EVAL COMPRE NEW PT 1/> VST URINE 25016 [facility] TEST [facility]IN[facility] OF VISUAL [place] COLOR CMPRSN METHS INSERTION 68648 [facility] INTRA[facility]ER CLINIC OF INE [place] DEVICE IUD LEVONORGE J7302 W[facility] STREL-RLS 0 [facility] E CLINIC OF INTRAUTER [place] N CNTRACPT 52 MG CONTRACEP A4267 [facility] TIVE 0 [facility] SUPPLY C[facility] CENTER CONDOM MALE EACH IADNA 07791 [facility] CHLAMYDIA [facility] CENTER TRACHOMAT IS AMPLIFIED PROBE TQ CYTP 21293 PATHOLOGY PATHOLOGY CERV/VAG 0 & & AUTO THIN CYTOLOGY CYTOLOGY LAYER LAB LAB PREP MNL SCREEN URINE 02219 [facility] 0 [facility] TEST CENTER CENTER VISUAL COLOR CMPRSN METHS DME A9900 [facility] SUP/ACCES 0 [facility] S/SRV-COM CENTER CENTER ISHMAEL/OTH HCPCS CYTP 96487 PATHOLOGY PATHOLOGY CERVICAL/ 0 & & VAGINAL CYTOLOGY CYTOLOGY REQ LAB LAB INTERP PHYSICIAN IADNA 61022 [facility] NEISSERIA 0 [facility] C[facility] CENTER GONORRHOE AE AMPLIFIED PROBE TQ RADIOLOGI 64298 [facility] C EXAM 0 MEDICAL JOSE CHEST 2 IMAGING VIEWS ASS FRONTAL&L ATERAL COMPREHEN 41911 [facility] SIVE 0 [facility] [address] [facility] AMYLASE 0 [place] [address] [facility] ANGIOGRAP 0 MEDICAL JOSE HY CHEST IMAGING W/CONTRAS ASS T/NONCONT RAST FIBRIN 16614 [facility] ANDERSONON DGRADJ 0 [facility] PRODUCTS INC INC D-DIMER QUAL/SEMI JONI URNLS DIP 63125 [facility] ANDERSONON 0 [facility] STICK/TAB INC INC LET REAGENT AUTO MICROSCOP Y BLOOD 25007 [facility] COUNT 0 [facility] COMPLETE INC INC AUTO&[place] [address] [facility] LIPASE 0 [facility] INC INC URINE 40188 [facility] 0 [facility] TEST INC INC VISUAL COLOR CMPRSN METHS Encounters Encounter Start End Date Code Location Performer Type Date EMERGENCY 10506 [facility] LOVE 6 6 PHYSICIAN ERIKA DEPARTMEN S, [facility] T VISIT HIGH/URGE NT SEVERITY EMERGENCY 26010 [facility]LEX GENAO DEPT 6 6 PHYSICIAN RIMA VISIT S, [facility]& THREAT [facility] - 6 6 [facility] OUTPATIEN INC T OFFICE 81917 [facility] OUTPATIEN 6 6 PHYSICIAN RIMA T VISIT S GROUP 15 MINUTES EMERGENCY 98373 [facility] 6 6 [facility] DEPARTMEN INC T VISIT LOW/MODER SEVERITY OFFICE 29587 [facility] OUTPATIEN 6 6 PHYSICIAN T VISIT S GROUP 15 MINUTES OFFICE 36187 [facility] FLORES OUTPATIEN 5 5 [facility] 15 MINUTES OFFICE 06191 [facility] RO OUTPATIEN 5 5 PHYSICIAN DUSTIN T VISIT S GROUP 15 MINUTES OFFICE 40432 [facility] FRYMAN OUTPATIEN 5 5 PHYSICIAN EUG T NEW 20 S GROUP MINUTES OFFICE 69867 SCIFRES SCIFRES OUTPATIEN 5 5 ANG ANG T VISIT 15 MINUTES PERIODIC 09489 RO [facility] PREVENTIV 4 4 DUSTIN DUSTIN E MED EST PATIENT 18-39 YRS OFFICE 78797 RO STARR OUTPATIEN 4 4 DUSTIN DUSTIN T VISIT 15 MINUTES OFFICE 60891 RO STARR OUTPATIEN 3 3 DUSTIN DUSTIN T VISIT 25 MINUTES OFFICE 22069 SCHULSTAD SCHULSTAD OUTPATIEN 3 3 JENIFFER JENIFFER T VISIT 15 MINUTES OFFICE 57692 FALLUJI FALLUJI CONSULTAT 3 3 JESSICA JESSICA ION NEW/ESTAB PATIENT 60 MIN [facility]OSPITAL [facility] - 3 3 [facility] OUTPATIEN INC T OFFICE 83117 ROGER DURAN OUTPATIEN 3 3 JENIFFER JENIFFER T VISIT 25 MINUTES OFFICE 81102 DILIA DOBBS OUTPATIEN 3 3 NISREEN NISREEN T VISIT 15 MINUTES HOSPITAL [facility] - 3 3 [facility] OUTPATIEN INC T OFFICE 89403 RO STARR OUTPATIEN 3 3 DUSTIN DUSTIN T VISIT 15 MINUTES OFFICE 86727 RO STARR OUTPATIEN 3 3 DUSTIN DUSTIN T VISIT 15 MINUTES OFFICE 27642 RO STARR OUTPATIEN 3 3 DUSTIN DUSTIN T VISIT 15 MINUTES EMERGENCY 60490 [facility] BENAVIDEZ 3 3 EMERGENCY FABIANA [facility] SERVICES T VISIT HIGH/URGE NT SEVERITY EMERGENCY 12138 [facility] 3 3 [facility] DEPARTMEN INC T VISIT LOW/MODER SEVERITY HOSPITAL [facility] - 3 3 [facility] OUTPATIEN INC T OFFICE 62397 RO STARR OUTPATIEN 3 3 DUSTIN DUSTIN T VISIT 15 MINUTES OFFICE 21662 RO STARR OUTPATIEN 3 3 DUSTIN DUSTIN T VISIT 15 MINUTES OFFICE 04320 ROGER DURAN OUTPATIEN 3 3 JENIFFER JENIFFER T VISIT 10 MINUTES HOSPITAL [facility] - 3 3 [facility] OUTPATIEN INC T OFFICE 27118 RO STARR OUTPATIEN 3 3 DUSTIN DUSTIN T VISIT 15 MINUTES OFFICE 40787 DILIA DOBBS OUTPATIEN 3 3 NISREEN NISREEN T NEW 30 MINUTES PERIODIC 59417 RO STARR PREVENTIV 3 3 DUSTIN DUSTIN E MED EST PATIENT 18-39 YRS OFFICE 75651 RO STARR OUTPATIEN 2 2 DUSTIN DUSTIN T VISIT 15 MINUTES OFFICE 86281 RO STARR OUTPATIEN 2 2 DUSTIN DUSTIN T VISIT 15 MINUTES OFFICE 42694 RO [facility] OUTPATIEN 2 2 DUSTIN DUSTIN T VISIT 15 MINUTES OFFICE 23536 RO ST[facility] OUTPATIEN 2 2 DUSTIN DUSTIN T VISIT 15 MINUTES OFFICE 31241 ST[facility] STARR OUTPATIEN 2 2 DUSTIN DUSTIN T VISIT 15 MINUTES OFFICE 94497 RO STARR OUTPATIEN 2 2 DUSTIN DUSTIN T VISIT 15 MINUTES OFFICE 10873 RO STARR OUTPATIEN 2 2 DUSTIN DUSTIN T VISIT 15 MINUTES PERIODIC 60063 RO STARR PREVENTIV 1 1 DUSTIN DUSTIN E MED EST PATIENT 18-39 YRS OFFICE 25091 RUFINA AGUILLONROBERTO EDDY OUTPATIEN 1 1 VISION T VISIT 10 MINUTES INITIAL 36654 [facility] PREVENTIV 0 0 [facility] MEDICINE NEW PT AGE 18-39YRS EMERGENCY 29459 [facility] DEPT 0 0 [facility] VISIT INC HIGH SEVERITY& THREAT FUN EMERGENCY 31490 [facility] GENAO DEPT 0 0 EMERGENCY RIMA VISIT SERVICES HIGH SEVERITY& THREAT [facility] - 0 0 [facility] OUTPATIEN INC T
--- OUTSIDE RECORDS SUMMARY | 2016-12-03 12:27 | External Medical Summary Rpt ---
Demographics Preferred Language Uzbek Marital Status Unknown Taoism Affiliation Unknown Race Unknown Ethnic Group Unknown Author Author HAYLEY Address Unknown Phone Immunization Unable to retrieve immunization data due to connection failure with Immunization Registry. Please try again later.
--- OUTSIDE RECORDS SUMMARY | 2016-12-03 12:27 | External Medical Summary Rpt ---
Demographics Preferred Language Estonian Marital Status Unknown Yarsani Affiliation Unknown Race Unknown Ethnic Group Unknown Author Author HAYLEY Address Unknown Phone Immunization Unable to retrieve immunization data due to connection failure with Immunization Registry. Please try again later.
--- OUTSIDE RECORDS SUMMARY | 2016-12-03 12:28 | External Medical Summary Rpt ---
Author Author [facility] [employer], [facility] [employer] Organization [facility] [employer] Address Unknown Phone Unavailable Results CBC W Auto Differential panel in Blood Observa Value Referen Units Interpr Notes Date tion ce etation Range Basophils 0 - 0.2 K/MM3 Normal No Dec 01 informati 2016 8:25 [#/volume on in PM ] in source Blood by data Automated count Basophils 0.1 - 2.0 % Normal No Dec 01 informati 2016 8:25 leukocyte on in PM s in source Blood by data Automated count Eosinophi 0.0 - 0.4 K/mm3 Normal No Dec 01 ls informati 2016 8:25 [#/volume on in PM ] in source Blood by data Automated count Eosinophi 0.1 - % Normal No Dec 01 ls/100 12.0 informati 2016 8:25 leukocyte on in PM s in source Blood by data Automated count Granulocy 1.8 - 7.8 K/mm3 Normal No Dec 01 liat informati 2016 8:25 [#/volume on in PM ] in source Blood by data Automated count Granulocy 37.0 - % Normal No Dec 01 liat/100 80.0 informati 2016 8:25 leukocyte on in PM s in source Blood by data Automated count Hematocri 37.0 - % Normal No Dec 01 t [Volume 47.0 informati 2016 8:25 on in PM Fraction] source of Blood data Hemoglobi 12.2 - g/dL Normal No Dec 01 n 16.2 informati 2016 8:25 [Mass/vol on in PM ume] in source Blood data Lymphocyt 0.7 - 4.5 K/mm3 Normal No Dec 01 es informati 2016 8:25 [#/volume on in PM ] in source Unspecifi data ed specimen by Automated count Lymphocyt 10 - 50.0 % Normal No Dec 01 es informati 2016 8:25 [#/volume on in PM ] in source Unspecifi data ed specimen by Automated count Erythrocy 27 - 31.2 pg High No Dec 01 te mean informati 2017 8:25 corpuscul on in PM ar source hemoglobi data n [Entitic mass] Erythrocy 31.8 - g/dl Normal No Dec 01 te mean 35.4 informati 2016 8:25 corpuscul on in PM ar source hemoglobi data n concentra tion [Mass/vol ume] by Automated count Erythrocy 82.2 - fl Normal No Dec 01 te mean 97.8 informati 2016 8:25 corpuscul on in PM ar volume source [Entitic data volume] by Automated count Monocytes 0.1 - 1.0 K/mm3 Normal No Dec 01 informati 2016 8:25 [#/volume on in PM ] in source Blood by data Automated count Monocytes 1.7 - 9.3 % Normal No Dec 01 /100 informati 2016 8:25 leukocyte on in PM s in source Blood by data Automated count Platelet 7.4 - fl Normal No Dec 01 mean 10.4 informati 2016 8:25 volume on in PM [Entitic source volume] data in Blood by Automated count Platelets 142 - 424 K/mm3 Normal No Dec 01 informati 2016 8:25 [#/volume on in PM ] in source Blood data Erythrocy 4.2 - 5.4 M/mm3 Normal No Dec 01 liat informati 2017 8:25 [#/volume on in PM ] in source Amniotic data fluid Erythrocy 11.5 - % Normal No Dec 01 te 17.5 informati 2016 8:25 distribut on in PM ion width source [Entitic data volume] by Automated count Leukocyte 4.8 - K/MM3 High No Dec 01 s 10.8 informati 2016 8:25 [#/volume on in PM ] in source Blood data Erythrocyte sedimentation rate by Westergren method Observa Value Referen Units Interpr Notes Date tion ce etation Range Erythrocy 0 - 20 mm/hr High No Dec 01 te informati 2017 8:25 sedimenta on in PM tion rate source by data Westergre n method Comprehensive metabolic 2000 panel in Serum or Plasma Observa Value Referen Units Interpr Notes Date tion ce etation Range Albumin/G 1.1 - 1.8 No Low No Dec 01 lobulin informati informati 2016 8:25 [Mass on in on in PM ratio] in source source Serum or data data Plasma Albumin 3.4 - 5.0 gm/dL Normal No Dec 01 [Mass/vol informati 2016 8:25 ume] in on in PM Serum or source Plasma data Alkaline 46 - 116 U/L Normal No Dec 01 phosphata informati 2016 8:25 se on in PM [Enzymati source c data activity/ volume] in Serum or Plasma Bilirubin 0.2 - 1.0 mg/dL Normal No Dec 01 .total informati 2016 8:25 [Mass/vol on in PM ume] in source Serum or data Plasma Urea 7 - 18 mg/dL High No Dec 01 nitrogen informati 2016 8:25 [Mass/vol on in PM ume] in source Serum or data Plasma Calcium 8.5 - mg/dL Normal No Dec 01 [Mass/vol 10.1 informati 2016 8:25 ume] in on in PM Serum or source Plasma data Chloride 98 - 107 mmoL/L Normal No Dec 01 [Moles/vo informati 2016 8:25 lume] in on in PM Serum or source Plasma data Carbon 21.0 - mmoL/L Normal No Dec 01 dioxide, 32.0 informati 2016 8:25 total on in PM [Moles/vo source lume] in data Serum or Plasma Creatinin 0.55 - mg/dL Normal No Dec 01 e 1.02 informati 2016 8:25 [Mass/vol on in PM ume] in source Serum or data Plasma Creatinin 50 - 200 ML/MIN Normal No Dec 01 e renal informati 2016 8:25 clearance on in PM source predicted data by Cockcroft -Gault formula Estimated 59- ML/MIN No REFERENCE Dec 01 informati RANGE: 2017 8:25 glomerula on in >60 PM r source ML/MIN/1. filtratio data 73 SQUARE n rate METERSIf (GF this patient is -A merican, then multiply theresult by 1.210. Globulin 1.3 - 3.2 gm/dL High No Dec 01 [Mass/vol informati 2016 8:25 ume] in on in PM Serum source data Glucose 74 - 106 mg/dL Normal No Dec 01 [Mass/vol informati 2016 8:25 ume] in on in PM Serum or source Plasma data Potassium 3.5 - 5.1 mmoL/L Normal No Dec 01 informati 2016 8:25 [Moles/vo on in PM lume] in source Serum or data Plasma Sodium 136 - 145 mmoL/L Normal No Dec 01 [Moles/vo informati 2016 8:25 lume] in on in PM Serum or source Plasma data Aspartate 15 - 37 U/L Low No Dec 01 informati 2016 8:25 aminotran on in PM sferase source [Enzymati data c activity/ volume] in Serum or Plasma Alanine 12 - 78 U/L Normal No Dec 01 aminotran informati 2016 8:25 sferase on in PM [Enzymati source c data activity/ volume] in Serum or Plasma Protein 6.4 - 8.2 gm/dL Normal No Dec 01 [Mass/vol informati 2016 8:25 ume] in on in PM Serum or source Plasma data Choriogonadotropin.beta subunit [Units] in 24 hour Urine Observa Value Referen Units Interpr Notes Date tion ce etation Range Choriogon NEG No No No Dec 01 adotropin informati informati informati 2016 8:08 .beta on in on in on in PM subunit source source source [Units] data data data in 24 hour Urine Chlamydia/GC Amplification Observa Value Referen Units Interpr Notes Date tion ce etation Range Chlamyd Negativ Negativ No No No Nov 27 ia e e informa informa informa 2017 trachom tion in tion in tion in atis source source source rRNA data data data [Presen ce] in Unspeci fied specime n by Probe & target amplifi cation method Neisser Negativ Negativ No No Perform Nov 27 ia e e informa informa ed at: 2017 gonorrh tion in tion in CB - oeae source source [facility] rRNA data data [Presen [place] ce] in [address], [place], [place] Probe & [id number] target 69Lab Directo amplifi r: cation Vincent method Allen sigala PhD, Phone: [phone] Comprehensive metabolic 2000 panel in Serum or Plasma Observa Value Referen Units Interpr Notes Date tion ce etation Range Albumin/G 1.1 - 1.8 No Normal No Nov 02 lobulin informati informati 2016 1:30 [Mass on in on in AM ratio] in source source Serum or data data Plasma Albumin 3.4 - 5.0 gm/dL Normal No Nov 02 [Mass/vol informati 2017 1:30 ume] in on in AM Serum or source Plasma data Alkaline 46 - 116 U/L Normal No Nov 02 phosphata informati 2017 1:30 se on in AM [Enzymati source c data activity/ volume] in Serum or Plasma Bilirubin 0.2 - 1.0 mg/dL Normal No Nov 02 .total informati 2016 1:30 [Mass/vol on in AM ume] in source Serum or data Plasma Urea 7 - 18 mg/dL High No Nov 02 nitrogen informati 2016 1:30 [Mass/vol on in AM ume] in source Serum or data Plasma Calcium 8.5 - mg/dL Normal No Nov 02 [Mass/vol 10.1 informati 2016 1:30 ume] in on in AM Serum or source Plasma data Chloride 98 - 107 mmoL/L Normal No Nov 02 [Moles/vo informati 2016 1:30 lume] in on in AM Serum or source Plasma data Carbon 21.0 - mmoL/L Normal No Nov 02 dioxide, 32.0 informati 2016 1:30 total on in AM [Moles/vo source lume] in data Serum or Plasma Creatinin 0.55 - mg/dL Normal No Nov 02 e 1.02 informati 2016 1:30 [Mass/vol on in AM ume] in source Serum or data Plasma Creatinin 50 - 200 ML/MIN Normal No Nov 02 e renal informati 2016 1:30 clearance on in AM source predicted data by Cockcroft -Gault formula Estimated 59- ML/MIN No REFERENCE Nov 02 informati RANGE: 2017 1:30 glomerula on in >60 AM r source ML/MIN/1. filtratio data 73 SQUARE n rate METERSIf (GF this patient is -A merican, then multiply theresult by 1.210. Globulin 1.3 - 3.2 gm/dL High No Nov 02 [Mass/vol informati 2016 1:30 ume] in on in AM Serum source data Glucose 74 - 106 mg/dL Normal No Nov 02 [Mass/vol informati 2016 1:30 ume] in on in AM Serum or source Plasma data Potassium 3.5 - 5.1 mmoL/L Normal No Nov 02 informati 2016 1:30 [Moles/vo on in AM lume] in source Serum or data Plasma Sodium 136 - 145 mmoL/L Normal No Nov 02 [Moles/vo informati 2017 1:30 lume] in on in AM Serum or source Plasma data Aspartate 15 - 37 U/L Low No Nov 02 informati 2016 1:30 aminotran on in AM sferase source [Enzymati data c activity/ volume] in Serum or Plasma Alanine 12 - 78 U/L Normal No Nov 02 aminotran informati 2016 1:30 sferase on in AM [Enzymati source c data activity/ volume] in Serum or Plasma Protein 6.4 - 8.2 gm/dL Normal No Nov 02 [Mass/vol informati 2016 1:30 ume] in on in AM Serum or source Plasma data Amylase [Enzymatic activity/volume] in Serum or Plasma Observa Value Referen Units Interpr Notes Date tion ce etation Range Amylase 25 - 115 U/L Normal No Nov 02 [Enzymati informati 2016 1:30 c on in AM activity/ source volume] data in Serum or Plasma Lipase [Enzymatic activity/volume] in Serum or Plasma Observa Value Referen Units Interpr Notes Date tion ce etation Range Lipase 73 - 393 U/L Normal No Nov 02 [Enzymati informati 2016 1:30 c on in AM activity/ source volume] data in Serum or Plasma Choriogonadotropin.beta subunit [Units] in 24 hour Urine Observa Value Referen Units Interpr Notes Date tion ce etation Range Choriogon NEG No No No Nov 02 adotropin informati informati informati 2016 1:30 .beta on in on in on in AM subunit source source source [Units] data data data in 24 hour Urine Urinalysis dipstick W Reflex Microscopic panel in Urine Observa Value Referen Units Interpr Notes Date tion ce etation Range Appeara CLEAR CLEAR No No No Nov 02 nce of informa informa informa 2017 Urine tion in tion in tion in 1:30 AM source source source data data data Bilirub NEGATIV NEG No No No Nov 02 in E informa informa informa 2016 [Presen tion in tion in tion in 1:30 AM ce] in source source source Urine data data data by Test strip Erythro NEGATIV NEG No No No Nov 02 cytes E informa informa informa 2016 [Presen tion in tion in tion in 1:30 AM ce] in source source source Urine data data data Color YELLOW YELLOW No No No Nov 02 of informa informa informa 2017 Urine tion in tion in tion in 1:30 AM source source source data data data Glucose NEG No No No Nov 02 [Mass/vol informati informati informati 2017 1:30 ume] in on in on in on in AM Urine by source source source Test data data data strip Ketones TRACE NEG mg/dL Abnorma No Oct 25 l informa 2017 [Presen tion in 1:30 AM ce] in source Urine data by Automat ed test strip Mucus NEGATIV NEG No No No Nov 02 [Presen E informa informa informa 2016 ce] in tion in tion in tion in 1:30 AM Urine source source source sedimen data data data t by Light microsc opy Nitrite NEGATIV NEG No No No Nov 02 E informa informa informa 2016 [Presen tion in tion in tion in 1:30 AM ce] in source source source Urine data data data by Test strip pH of 5.0 - 8.5 No Normal No Nov 02 Urine informati informati 2017 1:30 on in on in AM source source data data Protein NEG mg/dL High No Nov 02 [Mass/vol informati 2017 1:30 ume] in on in AM Urine by source Automated data test strip Specific 1.005 - No Normal No Nov 02 gravity 1.030 informati informati 2017 1:30 of Urine on in on in AM source source data data Epithel 3-5 0 - 5 #/hpf No No Nov 02 ial informa informa 2017 cells.s tion in tion in 1:30 AM quamous source source data data [Presen ce] in Urine sedimen t by Microsc opy high power field Urobili 1.0 NEG E.U./dL No No Nov 02 nogen informa informa 2016 [Presen tion in tion in 1:30 AM ce] in source source Urine data data by Test strip Leukocy [3 O wbc/hpf No No Oct 25 liat wbc/hpf informa informa 2016 [#/volu ; 5 tion in tion in 1:30 AM me] in wbc/hpf source source Urine ] data data Urinalysis dipstick W Reflex Microscopic panel in Urine Observa Value Referen Units Interpr Notes Date tion ce etation Range Appeara CLEAR CLEAR No No No Nov 02 nce of informa informa informa 2017 Urine tion in tion in tion in 1:30 AM source source source data data data Bilirub NEGATIV NEG No No No Nov 02 in E informa informa informa 2017 [Presen tion in tion in tion in 1:30 AM ce] in source source source Urine data data data by Test strip Erythro NEGATIV NEG No No No Nov 02 cytes E informa informa informa 2016 [Presen tion in tion in tion in 1:30 AM ce] in source source source Urine data data data Color YELLOW YELLOW No No No Nov 02 of informa informa informa 2017 Urine tion in tion in tion in 1:30 AM source source source data data data Glucose NEG No No No Nov 02 [Mass/vol informati informati informati 2017 1:30 ume] in on in on in on in AM Urine by source source source Test data data data strip Ketones TRACE NEG mg/dL Abnorma No Nov 02 l informa 2016 [Presen tion in 1:30 AM ce] in source Urine data by Automat ed test strip Mucus NEGATIV NEG No No No Nov 02 [Presen E informa informa informa 2016 ce] in tion in tion in tion in 1:30 AM Urine source source source sedimen data data data t by Light microsc opy Nitrite NEGATIV NEG No No No Nov 02 E informa informa informa 2016 [Presen tion in tion in tion in 1:30 AM ce] in source source source Urine data data data by Test strip pH of 5.0 - 8.5 No Normal No Nov 02 Urine informati informati 2017 1:30 on in on in AM source source data data Protein NEG mg/dL High No Oct 25 [Mass/vol informati 2017 1:30 ume] in on in AM Urine by source Automated data test strip Specific 1.005 - No Normal No Nov 02 gravity 1.030 informati informati 2017 1:30 of Urine on in on in AM source source data data Urobili 1.0 NEG E.U./dL No No Nov 02 nogen informa informa 2016 [Presen tion in tion in 1:30 AM ce] in source source Urine data data by Test strip CBC W Auto Differential panel in Blood Observa Value Referen Units Interpr Notes Date tion ce etation Range Basophils 0 - 0.2 K/MM3 Normal No Gurvinder 25 informati 2017 1:30 [#/volume on in AM ] in source Blood by data Automated count Basophils 0.1 - 2.0 % Normal No Nov 02 /100 informati 2016 1:30 leukocyte on in AM s in source Blood by data Automated count Eosinophi 0.0 - 0.4 K/mm3 High No Nov 02 ls informati 2016 1:30 [#/volume on in AM ] in source Blood by data Automated count Eosinophi 0.1 - % Normal No Nov 02 ls/100 12.0 informati 2016 1:30 leukocyte on in AM s in source Blood by data Automated count Granulocy 1.8 - 7.8 K/mm3 High No Nov 02 liat informati 2016 1:30 [#/volume on in AM ] in source Blood by data Automated count Granulocy 37.0 - % Normal No Nov 02 liat/100 80.0 informati 2016 1:30 leukocyte on in AM s in source Blood by data Automated count Hematocri 37.0 - % Normal No Nov 02 t [Volume 47.0 informati 2016 1:30 on in AM Fraction] source of Blood data Hemoglobi 12.2 - g/dL Normal No Nov 02 n 16.2 informati 2016 1:30 [Mass/vol on in AM ume] in source Blood data Lymphocyt 0.7 - 4.5 K/mm3 Normal No Nov 02 es informati 2016 1:30 [#/volume on in AM ] in source Unspecifi data ed specimen by Automated count Lymphocyt 10 - 50.0 % Normal No Nov 02 es informati 2016 1:30 [#/volume on in AM ] in source Unspecifi data ed specimen by Automated count Erythrocy 27 - 31.2 pg High No Nov 02 te mean informati 2016 1:30 corpuscul on in AM ar source hemoglobi data n [Entitic mass] Erythrocy 31.8 - g/dl Normal No Nov 02 te mean 35.4 informati 2016 1:30 corpuscul on in AM ar source hemoglobi data n concentra tion [Mass/vol ume] by Automated count Erythrocy 82.2 - fl Normal No Nov 02 te mean 97.8 informati 2016 1:30 corpuscul on in AM ar volume source [Entitic data volume] by Automated count Monocytes 0.1 - 1.0 K/mm3 Normal No Nov 02 informati 2017 1:30 [#/volume on in AM ] in source Blood by data Automated count Monocytes 1.7 - 9.3 % Normal No Oct 25 /100 informati 2017 1:30 leukocyte on in AM s in source Blood by data Automated count Platelet 7.4 - fl Normal No Oct 25 mean 10.4 informati 2017 1:30 volume on in AM [Entitic source volume] data in Blood by Automated count Platelets 142 - 424 K/mm3 Normal No Nov 02 informati 2016 1:30 [#/volume on in AM ] in source Blood data Erythrocy 4.2 - 5.4 M/mm3 Normal No Oct 25 liat informati 2016 1:30 [#/volume on in AM ] in source Amniotic data fluid Erythrocy 11.5 - % Normal No Nov 02 te 17.5 informati 2016 1:30 distribut on in AM ion width source [Entitic data volume] by Automated count Leukocyte 4.8 - K/MM3 High No Oct 25 s 10.8 informati 2016 1:30 [#/volume on in AM ] in source Blood data
--- OUTSIDE RECORDS SUMMARY | 2016-12-03 12:28 | External Medical Summary Rpt ---
Author Author [facility] [employer], [facility] [employer] Organization [facility] [employer] Address [...] data [Presen [place] ce] in [address], [place], [place] Probe & [id number] target 69Lab Directo amplifi r: cation Vincent method Allen sigala PhD, Phone: [phone] Comprehensive metabolic 2000 panel in Serum or [...]
--- NOTE | 2016-12-03 13:11 | RADIOLOGY REPORT PS360 ---
CT HEAD W/O CONTRAST HISTORY: Visual changes, blurred vision, recent head injury with headache S/P INJURY A FEW DAYS AGO ORDERING PHYSICIAN: Kosta Dennison MD PATIENT AGE: 31 years COMPARISON: 12/01/2016 TECHNIQUE: Axial images obtained without contrast. Brain and bone windows reviewed. FINDINGS: No midline shift, mass effect, intracranial hemorrhage, hydrocephalus, or extra-axial fluid collection is evident. The calvarium has an unremarkable appearance. No mastoid effusion. The visualized paranasal sinuses are unremarkable. IMPRESSION: Negative CT head without contrast. No acute finding.
--- NOTE | 2016-12-03 14:09 | Emergency Room Report ---
History of Present Illness Time Seen by [id number] Presenting Problem in Triage Pt arrived:Walked Presenting Problem:HEADACHE, BLUNT TRAUMA TO FACE 2 DAYS AGO, WITH 1X4 BOARD TO RIGHT FACIAL CHEEK. 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 N Clinical Suspician of Infection? N Mental Status: 1 - Regular (Normal Baseline) Sepsis Risk:Possible Sepsis Risk Have you (or family members/close friends) recently traveled outside the [place]? N If Yes, where/when: Have you had exposure to infectious disease within the past month? N TB? Other? Specify: Source patient, RN notes reviewed, family, RN/MD Exam Limitations no limitations Comment This is a 31-year-old male patient presenting with worse headache ever , for the past 2 days. Patient advised that she was working on her house, and she got hit in the RIGHT face with the baseboard. She denies any loss of conscious, any nausea, vomiting, convulsions. Initial workup, pain 2 days ago in the emergency room, resulted negative had CT head. Today she presents with a migrainous type headache, which she has a history of, associated with photophobia and nausea but no vomiting. ALLERGIES Coded Allergies: acetaminophen (From VICODIN) (Mild, ITCHING 12/01/16) PEANUTS (FOOD) (From PEANUTS (FOOD/DRUG)) (THROAT SWELLING; ANAPHYLAXIS 06/16/15 ) Sulfa (Sulfonamide Antibiotics) (I-HIVES 06/16/15) hydrocodone (ITCHING 06/16/15) peanut (From PEANUTS (FOOD/DRUG)) (THROAT SWELLING; ANAPHYLAXIS 06/16/15) Home Medications Discontinued Scripts Etodolac 200 MG PO QIDP PRN pain #30 CAP Prov: 11/02/16 DC: 12/01/16 0000 Reported Medications No Known Home Medications History Medical History General CAD? No Angina: No ID: No Hypertension? No Hyperlipidemia? No CHF? No DVT? No PE? No COPD? No Asthma? No Anemia? No GERD? No Gastric ulcers? No GI Bleed? No Hernia? No Thyroid Problems? No Hypothyroidism? No CVA? No Seizures? No Diabetes? No Renal Insuffiency? No End Stage Renal Disease? No UTI? No Stones? No BPH? No GB Disease: No Nephritic Syndrome? No Asplenia? No Hepatitis? No Sickle Cell Disease? No Arthritis? No Migraines? Yes Cataracts? No Glaucoma? No MRSA? No HIV? No TB? No Anxiety? No Depression? No Cancer? No More? No Immunization Hx DT/Tetanus 5-10 YRS Surgical Hx Previous Surgery?Y ENDOMETROSIS Colonoscopy [employer] Hx LMP N/A Social History Smoking Hx Smoker: Former Smoker Tobacco: No Packs/day < 1 Pack Alcohol Alcohol: No Review of Systems All Other Systems Reviewed and Negative Psychiatric/Neurological headache Physical Exam Vital Signs Vital Signs Date Time Temp Pulse Resp B/P Pulse O2 O2 Flow FiO2 Ox Delivery Rate 12/03 1508 98.6 76 16 101/53 98 12/03 1343 76 16 96/55 98 12/03 1306 20 12/03 1239 98.6 98 22 124/60 98 12/03 1224 98.1 96 20 118/67 98 General Appearance normal appearance, WD/WN, moderate distress Eye Exam - bilateral eye normal exam, bilateral eye PERRL, bilateral eye EOMI Ear, Nose, Throat hearing grossly normal, normal ENT inspection Neck normal inspection, non-tender, supple, full range of motion Respiratory Status Yes: trachea midline, chest symmetrical, non tender chest. No: respiratory distress. Lung Sounds bilateral: normal breath sounds, lungs clear. 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 Medical Decision Making LABS/Meds/Orders Pt receiving controlled substance in ED? No Comment 12:49 - Patient reevaluated, appears in no acute distress, medically stable, slightly hypertensive. We'll administer IV fluids and reevaluate again. 13:15-patient evaluated, much better, ambulatory, blood pressure stabilized. He is pain-free, advised patient will need to follow-up with PCP if any recurrent headaches. Patient mentioned that she had a family member, mother, diagnosed with glioblastoma. I encouraged patient to follow-up with PCP and obtain a contrast enhanced MRI brain. Results/Orders Current Medication Orders Sig/Tamara Start time Last Medication Dose Route Stop Time Status Admin Sodium Chloride 10 ML PRN PRN 12/03 1430 DCD IV 12/04 1416 Sodium Chloride 1,000 ML .Q1H1M 12/03 1345 DC 12/03 IV 12/03 1445 1342 Sodium Chloride 10 ML PRN PRN 12/03 1345 DCD IV 12/04 1338 Sodium Chloride 1,000 ML .STK-MED ONE 12/03 1340 DC IV Ketorolac 0 .STK-MED ONE 12/03 1300 DC Tromethamine .ROUTE Diphenhydramine HCl 0 .STK-MED ONE 12/03 1259 DC .ROUTE Metoclopramide HCl 0 .STK-MED ONE 12/03 1259 DC .ROUTE Diphenhydramine HCl 25 MG ONCE ONE 12/03 1245 DC 12/03 IM 12/03 1246 1307 Ketorolac 60 MG ONCE ONE 12/03 1245 DC 12/03 Tromethamine IM 12/03 1246 1306 Metoclopramide HCl 10 MG ONCE ONE 12/03 1245 DC 12/03 IM 12/03 1246 1304 Orders Procedure Date/time Status DIET-NOTHING BY MOUTH 12/03 D Active IV SALINE LOCK 12/[address] HEAD REQ 12/03 1237 Active XRAY/CT/US XRAY/CT/US CT head CT interpretation by discussed w/radiologist CT Results normal/NAD (no ICH), no fracture seen Departure Departure Time of Disposition 1407 Disposition DC Home or Self Care(routine) Clinical Impression Primary Impression: Headache Qualifiers: Headache type: tension-type Headache chronicity pattern: unspecified pattern Intractability: not intractable Qualified Code: G44.209 - Tension-type headache, unspecified, not intractable Condition STABLE Patient Instructions DI for Headache Additional Instructions This follow-up with your family physician if no better in the morning. Discharge Counseling Counseled pt/family regarding diagnosis, test results, medications/RX, home care, follow up needs Comment This follow-up with your family physician if no better in the morning. Prescriptions Current Visit Scripts No Known Home Medications ED Critical Care Critical Care No at 0945
[2016-12-03 15:08] VITALS: BP 101/53
== END 2016-12-03 15:11 | disposition home or self-care (01) ==
LOC: UTC 12:14 → ER 12:19
DX: G44.209 Tension-type headache, unspecified, not intractable (principal); S09.8XXA Other specified injuries of head, initial encounter

== ENCOUNTER 2017-02-18 09:08 | Emergency (ER) | payer OTHER ==
[~2017-02-18] VITALS: Ht 154.9 cm; Wt 90.7 kg
[2017-02-18] MEDS ORDERED: TRAMADOL 50MG T50 M1 PO (09:19)
--- NOTE | 2017-02-18 09:35 | Urgent Treatment Center Report ---
History of Present Issue Date/Time Seen by Provider 02/18/17 5633 Visit Reason Pt arrived:Walked Presenting Problem:PT STATES SHE BURNT HER RT FOREARM 3 DAYS AGO AT WORK, [employer]. Location if Accident:Work Onset of symptoms date/time:02/15/17/ or onset unknown for:MEDICAL HX UNKNOWN Have you (or family members/close friends) recently traveled outside the [place]? N If Yes, where/when: Have you had exposure to infectious disease within the past month? TB? Other? Specify: State that she burned her arm 3 days ago at work. States that she is having pain and some swelling to her forearm where she has the burn States that it hurts in her forearm when she moves her fingers feels like it is pulling on the burn area and now it is getting red States that she went into work today and was crying because it was hurting and they had her to come in and get checked ALLERGIES Coded Allergies: acetaminophen (From VICODIN) (Mild, ITCHING 12/01/16) PEANUTS (FOOD) (From PEANUTS (FOOD/DRUG)) (THROAT SWELLING; ANAPHYLAXIS 06/16/15 ) Sulfa (Sulfonamide Antibiotics) (I-HIVES 06/16/15) hydrocodone (ITCHING 06/16/15) peanut (From PEANUTS (FOOD/DRUG)) (THROAT SWELLING; ANAPHYLAXIS 06/16/15) Home Medications Reported Medications TRAMADOL HCL (Tramadol) 50 MG PO BID History Medical History General CAD? No Angina: No MT: No Hypertension? No Hyperlipidemia? No CHF? No DVT? No PE? No COPD? No Asthma? No Anemia? No GERD? No Gastric ulcers? No GI Bleed? No Hernia? No Thyroid Problems? No Hypothyroidism? No CVA? No Seizures? No Diabetes? No Renal Insuffiency? No UTI? No Stones? No BPH? No GB Disease: No Nephritic Syndrome? No Asplenia? No Hepatitis? No Sickle Cell Disease? No Arthritis? No Migraines? Yes Cataracts? No Glaucoma? No MRSA? No HIV? No TB? No Anxiety? No Depression? No Cancer? No More? No Immunization HX DT/Tetanus 5-10 YRS Surgical Hx Previous Surgery?Y ENDOMETROSIS Colonoscopy Social History Smoking Hx Smoker: Current Every Day Smoker Tobacco: Yes Type Cigarettes Packs/day < 1 Pack Alcohol Alcohol: No Review of Systems All Other Systems Reviewed and Negative Skin other (burn to forearm) Physical Exam Vital Signs Vital Signs Date Time Temp Pulse Resp B/P Pulse O2 O2 Flow FiO2 Ox Delivery Rate 02/18 943 18 02/18 0915 97.9 85 18 108/73 99 General Appearance normal appearance, WD/WN, no apparent distress Respiratory Status Yes: trachea midline, chest symmetrical, non tender chest. No: respiratory distress. Lung Sounds bilateral: normal breath sounds, lungs clear. Cardiovascular normal exam, regular rate/rhythm Extremities small pea sized burn to right forearm, red around burn area, noted some bruising to her forearm but she denies known injury besides burn, good pulses, good cap refill. mild swelling around burn Neurologic alert, normal exam, oriented x 3 Medical Decision Making LABS/Meds/Orders Pt receiving controlled substance in ED? No Results/Orders Current Medication Orders Sig/Tamara Start time Last Medication Dose Route Stop Time Status Admin Multi-Ingredient 1 UDP ONCE ONE 02/18 1000 DC 02/18 Ointment TP 02/18 1001 1003 Ketorolac 60 MG ONCE ONE 02/18 0945 DC 02/18 Tromethamine IM 02/18 0946 0943 XRAY/CT/US XRAY/CT/US XRAY forearm XR interpretation by reviewed by me Xray Results no fracture seen Departure Departure Time of Disposition 1006 Disposition DC Home or Self Care(routine) Clinical Impression Primary Impression: Burn Condition STABLE Patient Instructions Marcum, DI for Marcum, How to Take Care of a Burn, Minor Marcum (Alternative Therapy) Additional Instructions Use Neosporin with pain relief on the burn after cleaning well with antibacterial soap and water Use bandage over the area while at work watch redness around the burn and it it continues to get worse follow up with one of the doctors on the list that was given you Pick a family doctor from the list provided Discharge Counseling Counseled pt/family regarding diagnosis, test results, medications/RX, home care, follow up needs Prescriptions Current Visit Scripts CEPHALEXIN (Keflex 500MG Capsule) 500 MG PO QID #28 CAP at 1006
--- NOTE | 2017-02-18 10:00 | RADIOLOGY REPORT PS360 ---
FOREARM-RT COMPARISON: None HISTORY: Sustaining burn on forearm at work TECHNIQUE: AP and lateral views FINDINGS: The radius and ulna appear intact with no evidence of recent or old fracture. There may be some diffuse soft tissue swelling of the forearm but difficult to assess the degree of swelling without comparison views of the left forearm. There are no foreign bodies. IMPRESSION: Possible soft tissue swelling, no other abnormality noted
[2017-02-18] MEDS ORDERED: KEFLEX 500MG.500 MG PO (10:09)
[2017-02-18 10:12] VITALS: BP 108/73
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
--- OUTSIDE RECORDS SUMMARY | 2017-02-21 08:00 | External Medical Summary Rpt | CCD ---
Author Author , HAYLEY Organization HAYLEY Address Unknown Phone [email or web address] Care Team Providers Care Instrumentation Engineer Name Role Phone DILIA NISREEN, ARNNANI Unavailable [...] RIMA CHEW NANCY, CHEW Unavailable Unavailable NANCY [facility] Unavailable Unavailable CENTER, [facility] Unavailable Unavailable CENTER, [facility] Unavailable Unavailable INC, [facility] Unavailable Unavailable [facility]PITAL, [facility] AGUILLON SURJIT, AGUILLON SURJIT Unavailable Unavailable [facility], Unavailable Unavailable [facility] [place] [facility] Un[facility], [facility], Unavailable Unavailable [facility], Unavailable Unavailable [facility] Unavailable Unavailable SERVICES, [facility] O'LESLYE FABIANA, O'LESLYE Unavailable Unavailable [facility], Unavailable Unavailable [facility], [facility] Unavailable Unavailable LAB, [facility] PICKLESIMER JR RENATE, Unavailable Unavailable PICKLESIMER JR RENATE PICK[facility] JR REN[facility], Unavailable Unavailable [facility] RENUSCH ERIKA, RENUSCH Unavailable Unavailable ERIKA [facility] Unavailable Unavailable [id number] [address] [id number], [facility] [address] # [id number] SCHULSTAD JENIFFER, Unavailable Unavailable SCHULST[facility] JENIFFER SCHULST[facility] JENIFFER, Unavailable Unavailable SCHULST[facility] JNEIFFER SCIFRES ANG, SCIFRES Unavailable Unavailable ANG SCIFRES ANG, SCIFRES Unavailable Unavailable ANG [facility] Unavailable [place]available [place], [facility] [place] Purpose Continuity [...] TO ANALGESIC AGENT STATUS Z0100 ENCOUNTER 01-31-2016 [facility] [facility] EXAM EYES & GRE VISION W/O ABNORMAL FIND [id number] PAIN IN 01-13-2016 [place] LEFT ANKLE [facility]ICAL IM[facility]ING ASS M7989 OTHER 01-13-2016 [place] SPECIFIED MEDICAL SOFT TISSUE IMAGING ASS DISORDERS [id number] SPRAIN UNS 01-13-2016 [facility], LEFT ANKLE PLLC INITIAL ENCOUNTER J029 ACUTE 06-16-2015 [facility] PHARYNGITIS PHYSICIANS GROUP UNSPECIFIED J209 ACUTE 06-16-2015 [facility] BRONCHITIS PHYSICIANS UNSPECIFIED GROUP J40 BRONCHITIS 06-16-2015 [facility] NOT PHYSICIANS, SPECIFIED PLLC ACUTE OR CHRONIC R05 COUGH 06-16-2015 [place] [facility] R0602 SHORTNESS 06-16-2015 [place] OF BREATH MEDICAL IMAGING ASS E6609 OTHER 06-05-2015 [facility] OBESITY DUE PHYSICIANS TO EXCESS GROUP CALORIES N926 IRREGULAR 06-05-2015 [facility] MENSTRUATIO PHYSICIANS N GROUP UNSPECIFIED R635 ABNORMAL 06-05-2015 [facility] WEIGHT GAIN PHYSICIANS GROUP J0190 ACUTE 03-06-2015 [place] [facility] 03582 OBESITY, 01-19-2015 [facility] UNSPECIFIED PHYSICIANS GROUP 4279 UNSPECIFIED 01-19-2015 [facility] CARDIAC PHYSICIANS DYSRHYTHMIA GROUP V5869 LONG-TERM 01-19-2015 [facility] (CURRENT) PHYSICIANS USE OF GROUP OTHER MEDICATIONS 3671 MYOPIA 12-19-2014 [facility] 95206 NAUSEA 09-18-2014 [facility] ALONE PHYS[facility] 22439 DIARRHEA 09-18-2014 [facility] 97632 OTHER 05-18-2014 BHARGAV ANG VITREOUS OPACITIES V720 EXAMINATION 10-18-2013 [facility] EYES GRE AND VISION V7231 ROUTINE 06-21-2013 [facility] JR RENATE AL EXAMINATION 30028 UNSPECIFIED 05-24-2013 RO DUST[facility] CONSTIPATIO N 7831 ABNORMAL 05-24-2013 [facility] WEIGHT GAIN 99163 ABDOMINAL 04-19-2013 [facility] DUST[facility] PAIN, LEFT LOWER QUADRANT 98213 ABDOMINAL 03-29-2013 SCHULSTAD PAIN, JENIFFER UNSPECIFIED SITE 7802 SYNCOPE AND 03-24-2013 FALLUJI JESSICA COLLAPSE 76500 DIVERTICULO 03-23-2013 JU[facility] SIS OF JOSE COLON 5920 CALCULUS OF 03-23-2013 [facility] KIDNEY JOSE 78889 OTHER 03-23-2013 J[facility] NONSPECIFIC JOSE ABNORMAL FINDING OF LUNG FIELD V1272 PERSONAL 03-08-2013 [facility] HISTORY OF JENIFFER COLONIC POLYPS V160 FM HX 03-08-2013 [facility] MALIGNANT JENIFFER NEOPLASM GASTROINTES TINAL TRACT 97124 ABDOMINAL 03-07-2013 ARNOLD NISREEN PAIN, GENERALIZED 6260 ABSENCE OF 02-23-2013 [facility] 7231 CERVICALGIA 09-01-2012 JU[facility] JOSE 8470 NECK SPRAIN 09-01-2012 [facility] E8889 UNSPECIFIED 09-01-2012 JUDS[facility] FALL JOSE 6264 IRREGULAR 07-21-2012 [facility] MENSTRUAL CYCLE 2113 BENIGN 06-17-2012 [facility] NEOPLASM OF JENIFFER COLON 81433 UNSPECIFIED 04-21-2012 [facility] DUSTIN VAGINITIS AND VULVOVAGINI TIS 78255 OTHER 01-01-2011 RUFINA CHRONIC VISION ALLERGIC CONJUNCTIVI TIS V2511 ENC FOR 04-12-2010 [facility] E [place] CONTRACEPT DEVICE 2662 OTHER 03-22-2010 [facility] B-COMPLEX HEALTH DEFICIENCIE CENTER S V2509 OTH GENERAL 03-22-2010 [facility] HEALTH CNSL&ADVICE CENTER CONTRACEPT MANAGEMENT V7643 SCREENING 03-22-2010 [facility] NEOPLASM OF THE SKIN 486 PNEUMONIA, 03-04-2010 [facility] UNSPECIFIED SERVICES 5110 PLEURISY 03-04-2010 [facility] WITHOUT [facility]ERGENCY MENTION SERVICES EFFUS/[place] [address] CHEST PAIN 03-04-2010 [place] UNSPECIFIED [facility]ICAL IMAGING ASS J40 BRONCHITIS, NOT [...] 80 1- 1- 00 04 KE ve MI 01 20 20 AI AM 10 11 11 D DE 1 PH RE HB AR K R MA J 40 CY MG 03 93 TA 8 BL # ET 03 93 00 10 10 12 3 RI 85 GA Ac 60 -2 -2 .0 TE 55 IN ti 35 6- 7- 00 91 EY ve 46 20 20 AI 82 10 10 D HI 8 PH CH AR AE MA L CY S 03 93 8 # 03 93 CI 65 10 10 14 7 RI 85 GA Ac MI 86 -2 -2 .0 TE 55 IN ti OF 20 6- 7- 00 92 EY ve LO 07 20 20 AI XA 70 10 10 D HI CI 1 PH CH N AR AE HC MA L L CY S 50 0 03 MG 93 8 TA # B 03 93 DI 00 10 10 14 7 RI 85 GA Ac CL 78 -2 -2 .0 TE 55 IN ti OF 11 93 EY ve EN 78 20 20 AI AC 90 10 10 D HI 1 PH CH SO AR AE D [...] Procedures Procedure DOS Code Location Performer Comment [facility] [address] [facility] 6 GRE GRE XM&EVAL COMPRHNSV ESTAB PT 1/> RADEX 50564 [place] JUDSON ANKLE 6 MEDICAL JOSE COMPLETE IMAGING MINIMUM 3 ASS VIEWS CRTCHS E0114 ADVANCED CHEW UNDARM 6 TECHNOLOG NANCY OTH THAN IES INC WOOD PAIR PAD TIP&HNDGR IP RADIOLOGI 10886 [facility] C EXAM 6 [facility] CHEST 2 INC INC VIEWS FRONTAL&L ATERAL IAADI 06253 [facility] INFLUENZA 6 [facility] B VIRUS INC INC IAADI 62417 [facility] INFFLUENZ 6 [facility] A VIRUS INC INC THERAPEUT 77770 [facility] IC 6 PHYSICIAN RIMA PROPHYLAC S GROUP TIC/DX INJECTION SUBQ/IM PRESSURIZ 20194 [facility] ED/NONPRE 6 [facility] SSURIZED INC INC INHALATIO N TREATMENT INJECTION J0696 [facility] 6 PHYSICIAN RIMA CEFTRIAXO S GROUP NE SODIUM PER 250 MG INJECTION J1040 [facility] 6 PHYSICIAN RIMA METHYLPRE S GROUP DNISOLONE ACETATE 80 MG RADIOLOGI 44041 [place] GARCIA ALL C 6 MEDICAL EXAMINATI IMAGING ON CHEST ASS SINGLE VIEW FRONTAL URINE 58372 [facility] 6 PHYSICIAN DUSTIN TEST S GROUP VISUAL COLOR CMPRSN METHS OPHTH 12542 [facility] 5 GRE GRE XM&EVAL COMPRHNSV ESTAB PT 1/> OPHTH 05395 [facility] 4 GRE GRE XM&EVAL COMPRHNSV ESTAB PT 1/> DETERMINA 67686 [facility] TION 4 GRE GRE REFRACTIV E STATE CYTP C/V 66380 PICKLESIM PICKLESIM AUTO THIN 4 ER JR RENATE ER JR RENATE LYR PREPJ SCR MNL RESCR PHYS URNLS DIP 06665 RO STARR 4 DUSTIN DUSTIN STICK/TAB LET RGNT NON-AUTO W/O MICRSCP LOCM Q9967 [facility] ROB 300-399 3 [facility] MG/ML INC [place] [address] JUDSON JUDSON ABDOMEN & 3 JOSE JOSE PELVIS W/CONTRAS T MATERIAL 3D 83394 JU[facility] JUDSON RENDERING 3 JOSE JOSE W/INTERP& POSTPROC DIFF WORK STATION GONADOTRO 68193 [facility] ROB PIN 3 [facility] CHORIONIC INC INC QUALITATI VE RADEX 17307 [facility] ROB SPINE 3 [facility] CERVICAL INC INC 4 OR 5 VIEWS RADEX 13051 J[facility] JUDSON SPINE 3 JOSE JOSE CERVICAL 6 OR MORE VIEWS OPHTH 98399 [facility] 3 GRE GRE XM&EVAL COMPRE NEW PT 1/> VST DETERMINA 28532 [facility] TION 3 [place] [address] PICKLESIM PICKLESIM SURG 3 ER JR RENATE ER JR RENATE PATHOLOGY GROSS&RIMA ROSCOPIC EXAM IMHISTOCH 72705 PICKLESIM PICKLESIM EM/CYTCHM 3 ER JR RENATE ER JR RENATE 1ST ANTIBODY STAIN PROCEDURE COLSC FLX 14776 [facility] DARRON 3 [facility] W/REMOVAL INC INC LESION BY HOT BX FORCEPS URINE 89545 RO STARR 3 DUSTIN DUSTIN TEST VISUAL COLOR CMPRSN METHS URNLS DIP 57311 RO STARR 3 DUSTIN DUSTIN STICK/TAB LET RGNT NON-AUTO W/O MICRSCP CYTP C/V 39590 PICKLESIM PICKLESIM AUTO THIN 3 ER JR RENATE ER JR RENATE LYR PREPJ SCR MNL RESCR PHYS SMR PRIM 17403 RO STARR SRC WET 2 DUSTIN DUSTIN [place] AGT DETERMINA 28283 [facility] SC[facility] TION 2 ANG ANG REFRACTIV E STATE OPHTH 75136 [facility] MED[facility] 2 ANG ANG XM&EVAL COMPRHNSV ESTAB PT 1/> URNLS DIP 37007 STARR STARR 1 DUSTIN DUSTIN STICK/TAB LET RGNT NON-AUTO W/O MICRSCP CYTP C/V 48069 PATHOLOGY PATHOLOGY AUTO THIN 1 & & LYR CYTOLOGY CYTOLOGY PREPJ SCR LAB LAB MNL RESCR PHYS OPHTH 09378 [facility] VISION ANG XM&EVAL INTERMEDI ATE ESTAB PT OPHTH 46054 [facility] 1 VISION XM&EVAL COMPRE NEW PT /> VST INSERTION 29098 [facility] 0 [facility] OF INE [place] DEVICE IUD URINE 39086 [facility] 0 [facility]ALTH DUST[facility] TEST CLINIC OF VISUAL [place] COLOR CMPRSN METHS [place] J7302 W[facility] STARR STREL-RLS 0 HEALTH DUSTIN E CLINIC OF INTRAUTER [place] N CNTRACPT 52 MG URINE 31177 [facility] ROB 0 [facility] CENTER VISUAL COLOR CMPRSN METHS IADNA 28368 [facility] ROB CHLAMYDIA 0 [facility] TRACHOMAT IS AMPLIFIED PROBE TQ CYTP 26255 PATHOLOGY PATHOLOGY CERV/VAG 0 & & AUTO THIN CYTOLOGY CYTOLOGY LAYER LAB LAB PREP MNL SCREEN DME A9900 [facility] ROB SUP/ACCES 0 [facility] S/SRV-COM CENTER CENTER ISHMAEL/OTH HCPCS CYTP 62736 PATHOLOGY PATHOLOGY CERVICAL/ 0 & & VAGINAL CYTOLOGY CYTOLOGY REQ LAB LAB INTERP PHYSICIAN IADNA 21945 [facility] ROB NEISSERIA 0 [facility] CENTER GONORRHOE AE AMPLIFIED PROBE TQ CONTRACEP A4267 [facility] ROB TIVE 0 [facility] SUPPLY [facility]ENTER CENTER CONDOM MALE EACH URNLS DIP 83759 [facility] ROB 0 [facility] STICK/TAB INC INC [place] [address] [facility] ROB AMYLASE 0 [facility] [place] [address] [facility] ROB ANGIOGRAP 0 [facility] HY CHEST INC INC W/CONTRAS T/NONCONT RAST COMPREHEN 37106 [facility] ROB SIVE 0 [facility] [address] [facility] ROB LIPASE 0 [facility] INC INC FIBRIN 62901 [facility] ROB DGRADJ 0 [facility] PRODUCTS INC INC D-DIMER QUAL/SEMI JONI BLOOD 72191 [facility] COUNT 0 [facility] COMPLETE INC INC AUTO&AUTO DIFRNTL WBC RADIOLOGI 94334 [facility] ROB C EXAM 0 [facility] CHEST 2 INC INC VIEWS FRONTAL&L ATERAL URINE 95930 [facility] ROB 0 [facility] TEST INC INC VISUAL COLOR CMPRSN METHS Encounters Encounter Start End Date Code Location Performer Type Date EMERGENCY 22422 [facility] LOVE 6 6 PHYSICIAN ERIKA DEPARTMEN S, [facility] T VISIT HIGH/URGE NT SEVERITY EMERGENCY 54230 [facility] LOW/MODER SEVERITY EMERGENCY 19926 [facility] GENAO DEPT 6 6 PHYSICIAN RIMA VISIT S, PLLC HIGH SEVERITY& THREAT [facility] DARRON - 6 6 [facility] OUTPATIEN INC T OFFICE 11975 [facility] GOYO OUTPATIEN 6 6 PHYSICIAN RIMA T VISIT S GROUP 15 MINUTES OFFICE 64508 [facility] OUTPATIEN 6 6 PHYSICIAN T VISIT S GROUP 15 MINUTES OFFICE 10836 [facility] FLORES OUTPATIEN [address] [facility] 15 MINUTES OFFICE 04995 [facility] STARR OUTPATIEN 5 5 PHYSICIAN DUSTIN T VISIT S GROUP 15 MINUTES OFFICE 43938 [facility] FRYMAN OUTPATIEN 5 5 PHYSICIAN EUG T NEW 20 S GROUP MINUTES OFFICE 31044 SCIFRES SCIFRES OUTPATIEN 5 5 ANG ANG T VISIT 15 MINUTES PERIODIC 71759 RO STARR PREVENTIV 4 4 DUSTIN DUSTIN E MED EST PATIENT 18-39 YRS OFFICE 31424 RO STARR OUTPATIEN 4 4 DUTSIN DUSTIN T VISIT 15 MINUTES OFFICE 75867 RO STARR OUTPATIEN 3 3 DUSTIN DUSTIN T VISIT 25 MINUTES OFFICE 26598 SCHULSTNBA SCHULSTAD OUTPATIEN 3 3 JENIFFER JENIFFER T VISIT 15 MINUTES OFFICE 04778 FALLUJI FALLUJI CONSULTAT 3 3 JESSICA LOPEZ ION NEW/ESTAB PATIENT 60 MIN [facility] DARRON - 3 3 [facility] OUTPATIEN INC T OFFICE 85121 GISSELSTNBA CHAUHANSTAD OUTPATIEN 3 3 JENIFFER JENIFFER T VISIT 25 MINUTES OFFICE 97581 [facility] DOBBS OUTPATIEN 3 3 NISREEN NISREEN T VISIT 15 MINUTES HOSPITAL [facility] - 3 3 [facility] OUTPATIEN INC T OFFICE 36560 RO STARR OUTPATIEN 3 3 DUSTIN DUSTIN T VISIT 15 MINUTES OFFICE 91044 RO STARR OUTPATIEN 3 3 DUSTIN DUSTIN T VISIT 15 MINUTES OFFICE 41505 RO STARR OUTPATIEN 3 3 DUSTIN DUSTIN T VISIT 15 MINUTES Emergency JOHN BENAVIDEZ MD (ER) 3 09:46 3 11:33 [facility] DARRON - 3 3 [facility] OUTPATIEN INC T EMERGENCY 31690 [facility] 3 3 [facility] DEPARTMEN INC T VISIT LOW/MODER SEVERITY EMERGENCY 79008 [facility] BENAVIDEZ 3 3 EMERGENCY [facility] T VISIT HIGH/URGE NT SEVERITY OFFICE 35714 RO STARR OUTPATIEN 3 3 DUSTIN DUSTIN T VISIT 15 MINUTES OFFICE 57434 RO KIME OUTPATIEN 3 3 DUSTIN DUSTIN T VISIT 15 MINUTES OFFICE 78897 ROGER SCHULSTAD OUTPATIEN 3 3 JENIFFER JENIFFER T VISIT 10 MINUTES HOSPITAL [facility] - 3 3 [facility] OUTPATIEN INC T OFFICE 36750 RO STARR OUTPATIEN 3 3 DUSTIN DUSTIN T VISIT 15 MINUTES OFFICE 50597 DILIA DOBBS OUTPATIEN 3 3 NISREEN NISREEN T NEW 30 MINUTES PERIODIC 01541 RO STARR PREVENTIV 3 3 DUSTIN DUSTIN E MED EST PATIENT 18-39 YRS OFFICE 72461 RO STARR OUTPATIEN 2 2 DUSTIN DUSTIN T VISIT 15 MINUTES OFFICE 99437 RO STARR OUTPATIEN 2 2 DUSTIN DUSTIN T VISIT 15 MINUTES OFFICE 49719 RO KIME OUTPATIEN 2 2 DUSTIN DUSTIN T VISIT 15 MINUTES OFFICE 08514 RO KIME OUTPATIEN 2 2 DUSTIN DUSTIN T VISIT 15 MINUTES OFFICE 48960 ST[facility] STARR OUTPATIEN 2 2 DUSTIN DUSTIN T VISIT 15 MINUTES OFFICE 94237 RO KIME OUTPATIEN 2 2 DUSTIN DUSTIN T VISIT 15 MINUTES OFFICE 90050 [facility] STARR OUTPATIEN 2 2 DUSTIN DUSTIN T VISIT 15 MINUTES PERIODIC 19186 RO STARR PREVENTIV 1 1 DUSTIN DUSTIN E MED EST PATIENT 18-39 YRS OFFICE 43458 RUFINA AGUILLONROBERTO EDDY OUTPATIEN 1 1 VISION T VISIT 10 MINUTES INITIAL 76183 [facility] ROB PREVENTIV 0 0 [facility] NEW PT AGE 18-39YRS EMERGENCY 61547 [facility] GENAO DEPT 0 0 EMERGENCY RIMA VISIT SERVICES HIGH SEVERITY& THREAT [facility] EMERGENCY 62578 [facility] DEPT 0 0 [facility] VISIT INC HIGH SEVERITY& THREAT [facility] - 0 0 [facility] OUTPATIEN INC T
--- OUTSIDE RECORDS SUMMARY | 2017-02-21 08:02 | External Medical Summary Rpt | CCD ---
Author Author , HAYLEY BOWSERARTHUR Address Unknown Phone Care Team Providers Care Conversion Developer Name Role Phone ARNOLD NISREEN, ARNOLD Unavailable [...] RIMA CHEW NANCY, CHEW Unavailable Unavailable [facility] Unavailable Unavailable CENTER, [facility] Unavailable Unavailable CENTER, [facility] Unavailable Unavailable INC, [facility] Unavailable Unavailable HOSPITAL, [facility] AGUILLON SURJIT, AG[facility] SURJ[facility] Unavailable Unavailable [facility], Unavailable Unavailable [facility], [facility], Unavailable Unavailable [facility], Unavailable Unavailable [facility] Unavailable Unavailable SERVICES, [facility] O'LESLYE FABIANA, O'LESLYE Unavailable Unavailable [facility], Unavailable Unavailable [facility], [facility] Unavailable Unavailable LAB, [facility] PICKLESIMER JR RENATE, Unavailable Unavailable PICKLESIMER JR REN[facility], Unavailable Unavailable [facility] RENUSCH ERIKA, RENUSCH Unavailable Unavailable ERIKA [facility] Unavailable Unavailable [phone] [address] [phone], [facility] [phone] # [phone] SCHULSTAD JENIFFER, Unavailable Unavailable SCHULSTAD JENIFFER SCHULSTAD JENIFFER, Unavailable Unavailable SCH[facility]ST[facility] JENIFFER SCIFRES ANG, SCIFRES Unavailable Unavailable ANG SCIFRES ANG, SCIFRES Unavailable Unavailable ANG [facility] Unavailable [place]available [place], [facility] [place] Purpose Continuity of Care Document - 03-04-2010 through 2016 Problems Code Diagnosis DOS Provider Status Z0100 ENCOUNTER 01-31-2016 [facility] EXAM EYES & GRE VISION W/O ABNORMAL FIND [id number] PAIN IN 01-13-2016 [facility] LEFT ANKLE [facility] M7989 OTHER 01-13-2016 [facility] SPECIFIED MEDICAL SOFT TISSUE IMAGING ASS DISORDERS [id number] SPRAIN UNS 01-13-2016 [facility]IG[facility]ENT [facility], LEFT ANKLE PLLC INITIAL ENCOUNTER J029 ACUTE 06-16-2015 [facility] PHARYNGITIS PHYSICIANS GROUP UNSPECIFIED J209 ACUTE 06-16-2015 [facility] BRONCHITIS PHYSICIANS UNSPECIFIED GROUP J40 BRONCHITIS 06-16-2015 [facility] NOT PHYSICIANS, SPECIFIED PLLC ACUTE OR CHRONIC R05 COUGH 06-16-2015 [facility] R0602 SHORTNESS 06-16-2015 [facility] OF BREATH [facility]ICAL [facility] E6609 OTHER 06-05-2015 [facility] OBESITY DUE PHYSICIANS TO EXCESS GROUP CALORIES N926 IRREGULAR 06-05-2015 [facility] MENSTRUATIO PHYSICIANS N GROUP UNSPECIFIED R635 ABNORMAL 06-05-2015 [facility] WEIGHT GAIN PHYSICIANS GROUP J0190 ACUTE 03-06-2015 [facility] OBESITY, 01-19-2015 [facility] UNSPECIFIED PHYSICIANS GROUP 4279 UNSPECIFIED 01-19-2015 [facility] CARDIAC PHYSICIANS DYSRHYTHMIA GROUP V5869 LONG-TERM 01-19-2015 [facility] (CURRENT) PHYSICIANS USE OF GROUP OTHER MEDICATIONS 3671 MYOPIA 12-19-2014 [facility] 95684 NAUSEA 09-18-2014 [facility] ALONE PHYSICIANS GROUP 90195 DIARRHEA 09-18-2014 [facility] 11046 OTHER 05-18-2014 BHARGAV CURRAN VITREOUS OPACITIES V720 EXAMINATION 10-18-2013 [facility] OF EYES GRE AND VISION V7231 ROUTINE 06-21-2013 P[facility] GYNECOLOG[facility] JR RENATE AL EXAMINATION 00673 UNSPECIFIED 05-24-2013 ST[facility] DUSTIN CONSTIPATIO N 7831 ABNORMAL 05-24-2013 [facility] DUSTIN WEIGHT GAIN 50170 ABDOMINAL 04-19-2013 [facility] DUSTIN PAIN, LEFT LOWER QUADRANT 19525 ABDOMINAL 03-29-2013 SCHULSTAD PAIN, JENIFFER UNSPECIFIED SITE 7802 SYNCOPE AND 03-24-2013 FALLUJI JESSICA COLLAPSE 91363 DIVERTICULO 03-23-2013 JUDSON SIS OF JOSE COLON 5920 CALCULUS OF 03-23-2013 [facility] KIDNEY JOSE 57493 OTHER 03-23-2013 JUDSON NONSPECIFIC JOSE ABNORMAL FINDING OF LUNG FIELD V1272 PERSONAL 03-08-2013 SCHULSTAD HISTORY OF JENIFFER COLONIC POLYPS V160 FM HX 03-08-2013 SCH[facility] MALIGNANT JENIFFER NEOPLASM GASTROINTES TINAL TRACT 58513 ABDOMINAL 03-07-2013 ARNOLD NISREEN PAIN, GENERALIZED 6260 ABSENCE OF 02-23-2013 [facility] [facility] 7231 CERVICALGIA 09-01-2012 JUDSON JOSE 8470 NECK SPRAIN 09-01-2012 [facility] EMERGENCY SERVICES E8889 UNSPECIFIED 09-01-2012 JUDSON FALL JOSE 6264 IRREGULAR 07-21-2012 [facility] DUSTIN MENSTRUAL CYCLE 2113 BENIGN 06-17-2012 SCH[facility] NEOPLASM OF JENIFFER COLON 64700 UNSPECIFIED 04-21-2012 RO DUTSIN VAGINITIS AND VULVOVAGINI TIS 19304 OTHER 01-01-2011 RUFINA CHRONIC VISION ALLERGIC CONJUNCTIVI TIS V2511 ENC FOR 04-12-2010 [facility] E [place] CONTRACEPT DEVICE 2662 OTHER 03-22-2010 [facility] B-COMPLEX HEALTH DEFICIENCIE CENTER S V2509 OTH GENERAL 03-22-2010 [facility] HEALTH CNSL&ADVICE CENTER CONTRACEPT MANAGEMENT V7643 SCREENING 03-22-2010 [facility] MALIGNANT CENTER NEOPLASM OF THE SKIN 486 PNEUMONIA, 03-04-2010 [facility] UNSPECIFIED SERVICES 5110 PLEURISY 03-04-2010 [facility] WITHOUT EMERGENCY MENTION SERVICES EFFUS/[place] [address] CHEST PAIN 03-04-2010 [facility] UNSPECIFIED [facility]ICAL IM[facility]ING ASS Medications Na ND [...] .0 TE 25 AR ti ID 40 7 7- 00 09 KE ve EM 08 [...] 80 1- 1- 00 04 KE ve MO 01 20 20 AI AM 10 11 11 D DE 1 PH RE HB AR K R MA J 40 CY MG 03 93 TA 8 BL # ET 03 93 00 10 10 12 3 RI 85 GA Ac 60 -2 -2 .0 TE 55 IN ti 35 91 EY ve 46 20 20 AI 82 10 10 D SC 8 PH CH AR AE MA L CY S 03 93 8 # 03 93 CI 65 10 10 14 7 RI 85 GA Ac MO 86 -2 -2 .0 TE 55 IN ti OF 20 00 92 EY ve LO 07 20 20 AI XA 70 10 10 D SC CI 1 PH CH N AR AE HC MA L L CY S 50 0 03 MG 93 8 TA # B 03 93 DI 00 10 10 14 7 RI 85 GA Ac CL 78 -2 -2 .0 TE 55 IN ti OF 11 93 EY ve EN 78 20 20 AI AC 90 10 10 D SC 1 PH CH SO AR AE D MA L EC CY S 75 03 93 MG 8 # TA 03 B 93 Procedures Procedure DOS Code Location Performer Comment OPHTH 28983 [facility] 6 GRE GRE XM&EVAL COMPRHNSV ESTAB PT 1/> RADEX 23382 [facility] JUDSON ANKLE 6 MEDICAL JOSE COMPLETE IMAGING MINIMUM 3 ASS VIEWS CRTCHS E0114 ADVANCED CHEW UNDARM 6 TECHNOLOG NANCY OTH THAN IES INC WOOD PAIR PAD TIP&HNDGR IP RADIOLOGI 09878 [facility] C EXAM 6 [facility] CHEST 2 INC INC VIEWS FRONTAL&L ATERAL INJECTION J0696 [facility] GOYO 6 PHYSICIAN RIMA CEFTRIAXO S GROUP NE SODIUM PER 250 MG INJECTION J1040 [facility] GOY[facility] 6 PHYSICIAN RIMA METHYLPRE S GROUP DNISOLONE ACETATE 80 MG RADIOLOGI 48776 [facility] GARCIA ALL C 6 MEDICAL EXAMINATI IMAGING ON CHEST ASS SINGLE VIEW FRONTAL PRESSURIZ 88316 [facility] ED/NONPRE 6 [facility]OS[facility] SSURIZED INC INC INHALATIO N TREATMENT IAADI 00754 [facility] INFLUENZA 6 [facility] B VIRUS INC INC IAADI 04512 [facility] INFFLUENZ 6 [facility] A A VIRUS INC [facility]APE[facility] RIMA PROPHYLAC S GROUP TIC/DX INJECTION SUBQ/IM URINE 78118 [facility] RO 6 PHYSICIAN DUSTIN TEST S GROUP VISUAL COLOR CMPRSN METHS OPHTH 67824 [facility] 5 GRE GRE XM&EVAL COMPRHNSV ESTAB PT 1/> OPHTH 44525 [facility] 4 GRE GRE XM&EVAL COMPRHNSV ESTAB PT 1/> DETERMINA 00561 [facility] TION 4 GRE GRE REFRACTIV E STATE CYTP C/V 85311 PICKLESIM PICKLESIM AUTO THIN 4 ER JR RENATE ER JR RENATE LYR PREPJ SCR MNL RESCR PHYS URNLS DIP 39421 RO STARR 4 DUSTIN DUSTIN STICK/TAB LET RGNT NON-AUTO W/O MICRSCP LOCM Q9967 [facility] ROB [phone] 3 [facility] MG/ML INC INC IODINE CONCENTRA TION PER ML 3D 52740 JUDSON JUDSON RENDERING 3 JOSE JOSE W/INTERP& [place] [address] [facility] ABDOMEN & 3 [facility] PELVIS INC INC W/CONTRAS T MATERIAL GONADOTRO 59234 [facility] PIN 3 [facility] CHORIONIC INC INC QUALITATI VE RADEX 30561 [facility] SPINE 3 [facility] CERVICAL INC INC 4 OR 5 VIEWS RADEX 76218 JU[facility]ON JUDSON SPINE 3 JOSE JOSE CERVICAL 6 OR MORE VIEWS OPHTH 35297 [facility] 3 GRE GRE XM&EVAL COMPRE NEW PT 1/> VST DETERMINA 61514 [facility] TION 3 GRE GRE [place]RACT[place] COLSC FLX 384[address] [facility] ROB 3 [facility] W/REMOVAL INC [place] [address] PICKLESIM PICKLESIM SURG 3 ER JR RENATE ER JR RENATE PATHOLOGY GROSS&RIMA ROSCOPIC EXAM IMHISTOCH 54476 PICKLESIM PICKLESIM EM/CYTCHM 3 ER JR RENATE ER JR RENATE 1ST ANTIBODY STAIN PROCEDURE URINE 59884 RO STARR 3 DUSTIN DUSTIN TEST VISUAL COLOR CMPRSN METHS CYTP C/V 01392 PICKLESIM PICKLESIM AUTO THIN 3 ER JR RENATE ER JR RENATE LYR PREPJ SCR MNL RESCR PHYS URNLS DIP 63328 RO STARR 3 DUSTIN DUSTIN STICK/TAB LET RGNT NON-AUTO W/O MICRSCP SMR PRIM 51040 RO STARR SRC WET 2 DUSTIN DUSTIN [facility] AGT OPHTH 63201 [facility] 2 ANG ANG XM&EVAL COMPRHNSV ESTAB PT 1/> DETERMINA 98224 [facility] ANG ANG REFRACTIV E STATE URNLS DIP 16084 RO STARR 1 DUSTIN DUSTIN STICK/TAB LET RGNT NON-AUTO W/O MICRSCP CYTP C/V 25236 PATHOLOGY PATHOLOGY AUTO THIN 1 & & LYR CYTOLOGY CYTOLOGY PREPJ SCR LAB LAB MNL RESCR PHYS OPHTH 30145 [facility] 1 VISION ANG XM&EVAL INTERMEDI ATE ESTAB PT OPHTH 35895 [facility] 1 VISION XM&EVAL COMPRE NEW PT 1/> VST INSERTION 27127 [facility] 0 [facility] INE [place] DEVICE IUD URINE 30213 [facility] 0 [facility] TEST CLINIC OF VISUAL [place] COLOR CMPRSN METHS [place] J7302 W[facility] STARR STREL-RLS 0 [facility] E CLINIC OF INTRAUTER [place] N CNTRACPT 52 MG CONTRACEP A4267 [facility] TIVE 0 [facility] CENTER CONDOM MALE EACH URINE 69246 [facility] ROB 0 [facility] CENTER VISUAL COLOR CMPRSN METHS IADNA 33709 [facility] CHLAMYDIA 0 [facility] CENTER TRACHOMAT IS AMPLIFIED PROBE TQ CYTP 76826 PATHOLOGY PATHOLOGY CERV/VAG 0 & & AUTO THIN CYTOLOGY CYTOLOGY LAYER LAB LAB PREP MNL SCREEN CYTP 91447 PATHOLOGY PATHOLOGY CERVICAL/ 0 & & VAGINAL CYTOLOGY CYTOLOGY REQ LAB LAB INTERP PHYSICIAN DME A9900 [facility] SUP/ACCES 0 [facility] CENTER ISHMAEL/OTH HCPCS IADNA 00222 [facility] ROB NEISSERIA 0 [facility] CENTER GONORRHO[place] [address] [facility] LIPASE 0 [facility] INC INC FIBRIN 84223 [facility] DGRADJ 0 [facility] PRODUCTS INC INC D-DIMER QUAL/[place] [address] [facility] AMYLASE 0 [facility] INC INC COMPREHEN 46144 [facility] SIVE 0 [facility] [place] [address] [facility] JUDSON ANGIOGRAP 0 MEDICAL JOSE HY CHEST IMAGING W/CONTRAS ASS T/NONCONT RAST URINE 14787 [facility] ROB 0 [facility] TEST INC INC VISUAL COLOR CMPRSN METHS RADIOLOGI 10143 MARCOS JUDSON C EXAM 0 MEDICAL JOSE CHEST 2 IMAGING VIEWS ASS FRONTAL&L ATERAL URNLS DIP 21927 [facility] 0 [facility] STICK/TAB INC INC LET REAGENT AUTO MICROSCOP Y BLOOD 50583 [facility] ANDERSONON COUNT 0 [facility] COMPLETE INC INC AUTO&AUTO DIFRNTL WBC Encounters Encounter Start End Date Code Location Performer Type Date EMERGENCY 78502 [facility] LOVE 6 6 PHYSICIAN ERIKA DEPARTMEN S, [facility] T VISIT HIGH/URGE NT SEVERITY EMERGENCY 18659 [facility] GENAO DEPT 6 6 PHYSICIAN RIMA VISIT S, PLLC HIGH SEVERITY& THREAT FUNCJ OFFICE 61231 [facility] GOYO OUTPATIEN 6 6 PHYSICIAN RIMA T VISIT S GROUP 15 MINUTES HOSPITAL [facility] - 6 6 [facility] OUTPATIEN INC T EMERGENCY 97036 [facility] 6 6 [facility] DEPARTMEN INC T VISIT LOW/MODER SEVERITY OFFICE 68680 [facility] OUTPATIEN 6 6 PHYSICIAN T VISIT S GROUP 15 MINUTES OFFICE 50722 [facility] FLORES OUTPATIEN 5 5 [facility] T VISIT HOSPITAL 15 MINUTES OFFICE 01857 [facility] RO OUTPATIEN 5 5 PHYSICIAN DUSTIN T VISIT S GROUP 15 MINUTES OFFICE 28530 [facility] FRYMJUAN DAVID OUTPATIEN 5 5 PHYSICIAN EUG T NEW 20 S GROUP MINUTES OFFICE 55783 SCIFRES SCIFRES OUTPATIEN 5 5 ANG ANG T VISIT 15 MINUTES PERIODIC 64609 RO [facility] PREVENTIV 4 4 DUSTIN DUSTIN E MED EST PATIENT 18-39 YRS OFFICE 12252 RO STARR OUTPATIEN 4 4 DUSTIN DUSTIN T VISIT 15 MINUTES OFFICE 31250 RO STARR OUTPATIEN 3 3 DUSTIN DUSITN T VISIT 25 MINUTES OFFICE 93788 SCHULSTAD SCHULSTAD OUTPATIEN 3 3 JENIFFER JENIFFER T VISIT 15 MINUTES OFFICE 04878 [facility] MARTI CONSULTAT 3 3 JESSICA RODRIGEZ NEW/ESTAB PATIENT 60 MIN [facility]OSPITAL [facility] - 3 3 [facility] OUTPATIEN INC T OFFICE 52338 ROGER CHAUHANSTNBA OUTPATIEN 3 3 JENIFFER JENIFFER T VISIT 25 MINUTES OFFICE 35507 DILIA DOBBS OUTPATIEN 3 3 NISREEN NISREEN T VISIT 15 MINUTES HOSPITAL [facility] - 3 3 [facility] OUTPATIEN INC T OFFICE 71442 RO STARR OUTPATIEN 3 3 DUSTIN DUSTIN T VISIT 15 MINUTES OFFICE 22537 RO STARR OUTPATIEN 3 3 DUSTIN DUSTIN T VISIT 15 MINUTES OFFICE 22391 RO STARR OUTPATIEN 3 3 DUSTIN DUSTIN T VISIT 15 MINUTES EMERGENCY 63470 [facility] 3 3 [facility] DEPARTMEN INC T VISIT LOW/MODER SEVERITY EMERGENCY 68851 [facility] BENAVIDEZ 3 3 EMERGENCY [facility] T VISIT HIGH/URGE NT SEVERITY HOSPITAL [facility] - 3 3 [facility] OUTPATI[facility] INC T OFFICE 77781 RO STARR OUTPATIEN 3 3 DUSTIN DUSTIN T VISIT 15 MINUTES OFFICE 82827 RO STARR OUTPATIEN 3 3 DUSTIN DUSTIN T VISIT 15 MINUTES OFFICE 24694 ROGER DURAN OUTPATIEN 3 3 JENIFFER JENIFFER T VISIT 10 MINUTES HOSPITAL [facility] - 3 3 [facility] OUTPATIEN INC T OFFICE 24228 RO STARR OUTPATIEN 3 3 DUSTIN DUSTIN T VISIT 15 MINUTES OFFICE 75662 DILIA DOBBS OUTPATIEN 3 3 NISREEN NISREEN T NEW 30 MINUTES PERIODIC 74130 RO STARR PREVENTIV 3 3 DUSTIN DUSTIN E MED EST PATIENT 18-39 YRS OFFICE 27512 RO STARR OUTPATIEN 2 2 DUSTIN DUSTIN T VISIT 15 MINUTES OFFICE 20365 RO STARR OUTPATIEN 2 2 DUSTIN DUSTIN T VISIT 15 MINUTES OFFICE 95340 RO STARR OUTPATIEN 2 2 DUSTIN DUSTIN T VISIT 15 MINUTES OFFICE 71565 RO STARR OUTPATIEN 2 2 DUSTIN DUSTIN T VISIT 15 MINUTES OFFICE 11428 RO KIME OUTPATIEN 2 2 DUSTIN DUSTIN T VISIT 15 MINUTES OFFICE 01387 RO [facility] OUTPATIEN 2 2 DUSTIN DUSTIN T VISIT 15 MINUTES OFFICE 24044 RO STARR OUTPATIEN 2 2 DUSTIN DUSTIN T VISIT 15 MINUTES PERIODIC 07012 RO STARR PREVENTIV 1 1 DUSTIN DUSTIN E MED EST PATIENT 18-39 YRS OFFICE 61674 RUFINA AGUILLON SURJIT OUTPATIEN 1 1 VISION T VISIT 10 MINUTES INITIAL 46593 [facility] ROB PREVENTIV 0 0 [facility] NEW PT AGE 18-39YRS [facility] - 0 0 [facility] OUTPATIEN INC T EMERGENCY 15146 [facility] GENAO DEPT 0 0 EMERGENCY RIMA VISIT SERVICES HIGH SEVERITY& THREAT FUNCJ EMERGENCY 97280 [facility] DEPT 0 0 [facility] VISIT INC HIGH SEVERITY& THREAT FUNCJ
--- OUTSIDE RECORDS SUMMARY | 2017-02-21 08:02 | External Medical Summary Rpt | CCD ---
Demographics Preferred Language Portuguese Marital Status Unknown Mosque Affiliation Unknown Race Unknown Ethnic Group Unknown Author Author , HAYLEY HARDY Address Unknown Phone Immunization No patient found.
--- OUTSIDE RECORDS SUMMARY | 2017-02-21 08:02 | External Medical Summary Rpt | CCD ---
Author Author , HAYLEY BOWSERARTHUR Address Unknown Phone [email or web address] Care Team Providers Care Cyber Threat Analyst Name Role Phone ARNOLD NISREEN, ARNOLD Unavailable [...] RIMA, CHADWICK Unavailable Unavailable RIMA CHEW NANCY, HCEW Unavailable Unavailable NANCY [facility] Unavailable Unavailable CENTER, [facility] Unavailable Unavailable CENTER, [facility] Unavailable Unavailable INC, [facility] Unavailable [facility]available HOSPITAL, [facility] AGUILLON SURJIT, AGUILLON SURJIT Unavailable Unavailable [facility], Unavailable Unavailable [facility] Un[facility], [facility], Unavailable Unavailable [facility], Unavailable Unavailable [facility] Unavailable Unavailable SERVICES, [facility] O'LESLYE FABIANA, O'LESLYE Unavailable Unavailable [facility], Unavailable Unavailable [facility], [facility] Unavailable Unavailable LAB, [facility] PICKLESIMER JR RENATE, Unavailable Unavailable PICKLESIMER JR RENATE PICKLESIMER JR RENATE, Unavailable Unavailable [facility] RENUSCH ERIKA, RENUSCH Unavailable Unavailable ERIKA [facility] Unavailable Unavailable [id number] [address] [id number], [facility] [address] # [phone] SCHULSTAD JENIFFER, Unavailable Unavailable SCHULSTAD JENIFFER SCHULSTAD JENIFFER, Unavailable Unavailable SCHULST[facility] JENIFFER SCIFRES ANG, SCIFRES Unavailable Unavailable ANG SCIFRES ANG, SCIFRES Unavailable Unavailable ANG [facility] Unavailable Unavailable [place], [email or web address] [place] Purpose Continuity of Care Document - 03-04-2010 through 2016 Problems Code Diagnosis DOS Provider Status Z0100 ENCOUNTER 01-31-2016 [facility] EXAM EYES & GRE VISION W/O ABNORMAL FIND [id number] PAIN IN 01-13-2016 [place] LEFT ANKLE [facility] M7989 OTHER 01-13-2016 [place] SPECIFIED MEDICAL SOFT TISSUE IMAGING ASS DISORDERS [id number] SPRAIN UNS 01-13-2016 [facility] LIGAMENT [facility]YS[facility], LEFT ANKLE PLLC INITIAL ENCOUNTER J029 ACUTE 06-16-2015 [facility] PHARYNGITIS PHYSICIANS GROUP UNSPECIFIED J209 ACUTE 06-16-2015 [facility] BRONCHITIS PHYSICIANS UNSPECIFIED GROUP J40 BRONCHITIS 06-16-2015 [facility] NOT PHYSICIANS, SPECIFIED PLLC ACUTE OR CHRONIC R05 COUGH 06-16-2015 [facility] R0602 SHORTNESS 06-16-2015 [place] OF BREATH [facility]ICAL IM[facility]ING ASS E6609 OTHER 06-05-2015 [facility] OBESITY DUE PHYSICIANS TO EXCESS GROUP CALORIES N926 IRREGULAR 06-05-2015 [facility] MENSTRUATIO PHYSICIANS N GROUP UNSPECIFIED R635 ABNORMAL 06-05-2015 [facility] WEIGHT GAIN PHYSICIANS GROUP J0190 ACUTE 03-06-2015 [facility] [address] OBESITY, 01-19-2015 [facility] UNSPECIFIED PHYSICIANS GROUP 4279 UNSPECIFIED 01-19-2015 [facility] CARDIAC PHYSICIANS DYSRHYTHMIA GROUP V5869 LONG-TERM 01-19-2015 [facility] (CURRENT) PHYSICIANS USE OF GROUP OTHER MEDICATIONS 3671 MYOPIA 12-19-2014 [facility] 29268 NAUSEA 09-18-2014 [facility] ALONE PHYSICIANS GROUP 30744 DIARRHEA 09-18-2014 [facility] PH[facility]ANS GROUP 57907 OTHER 05-18-2014 BHARGAV CURRAN VITREOUS OPACITIES V720 EXAMINATION 10-18-2013 [facility] OF EYES GRE AND VISION V7231 ROUTINE 06-21-2013 [facility] JR RENATE AL EXAMINATION 10260 UNSPECIFIED 05-24-2013 [facility] DUSTIN CONSTIPATIO N 7831 ABNORMAL 05-24-2013 [facility] WEIGHT GAIN 91503 ABDOMINAL 04-19-2013 [facility] DUSTIN PAIN, LEFT LOWER QUADRANT 01438 ABDOMINAL 03-29-2013 SCHULSTAD PAIN, JENIFFER UNSPECIFIED SITE 7802 SYNCOPE AND 03-24-2013 FALLUJI JESSICA COLLAPSE 82745 DIVERTICULO 03-23-2013 JU[facility] SIS OF JOSE COLON 5920 CALCULUS OF 03-23-2013 [facility] KIDNEY JOSE 36631 OTHER 03-23-2013 J[facility] NONSPECIFIC JOSE ABNORMAL FINDING OF LUNG FIELD V1272 PERSONAL 03-08-2013 SCHUL[facility] HISTORY OF JENIFFER COLONIC POLYPS V160 FM HX 03-08-2013 [facility] MALIGNANT JENIFFER NEOPLASM GASTROINTES TINAL TRACT 12632 ABDOMINAL 03-07-2013 ARNOLD NISREEN PAIN, GENERALIZED 6260 ABSENCE OF 02-23-2013 [place] [facility] 7231 CERVICALGIA 09-01-2012 JU[facility] JOSE 8470 NECK SPRAIN 09-01-2012 [facility] EMERGENCY SERVICES E8889 UNSPECIFIED 09-01-2012 JUDS[facility] FALL JOSE 6264 IRREGULAR 07-21-2012 [facility] MENSTRUAL CYCLE 2113 BENIGN 06-17-2012 [facility] NEOPLASM OF JENIFFER COLON 09328 UNSPECIFIED 04-21-2012 RO DUST[facility] VAGINITIS AND VULVOVAGINI TIS 14860 OTHER 01-01-2011 RUFINA CHRONIC VISION ALLERGIC CONJUNCTIVI TIS V2511 ENC FOR 04-12-2010 [facility] [place] CONTRACEPT DEVICE 2662 OTHER 03-22-2010 [facility] B-[facility]X [facility] DEFICIENCIE CENTER S V2509 OTH GENERAL 03-22-2010 [facility] HEALTH CNSL&ADVICE CENTER CONTRACEPT MANAGEMENT V7643 SCREENING 03-22-2010 [facility] MALIGNANT CENTER NEOPLASM OF THE SKIN 486 PNEUMONIA, 03-04-2010 [facility] UNSPECIFIED SERVICES 5110 PLEURISY 03-04-2010 [facility] WITHOUT EMERGENCY MENTION SERVICES EFFUS/[place] [address] CHEST PAIN 03-04-2010 [place] UNSPECIFIED [facility]ICAL IM[facility]ING ASS Medications Na ND [...] 80 1- 1- 00 04 KE ve [place] 01 20 20 AI AM 10 11 11 D DE 1 PH RE HB AR K R MA J 40 CY MG 03 93 TA 8 BL # ET 03 93 00 10 10 12 3 RI 85 GA Ac 60 -2 -2 .0 TE 55 IN ti 35 91 EY ve 46 20 20 AI 82 10 10 D AR 8 PH CH AR AE MA L CY S 03 93 8 # 03 93 CI 65 10 10 14 7 RI 85 GA Ac [place] 86 -2 -2 .0 TE 55 IN ti OF 20 00 92 EY ve LO 07 20 20 AI XA 70 10 10 D AR CI 1 PH CH N AR AE HC MA L L CY S 50 0 03 MG 93 8 TA # B 03 93 DI 00 10 10 14 7 RI 85 GA Ac CL 78 -2 -2 .0 TE 55 IN ti OF 11 93 EY ve EN 78 20 20 AI AC 90 10 10 D AR 1 PH CH SO AR AE D MA L EC CY S 75 03 93 MG 8 # TA 03 B 93 Procedures Procedure DOS Code Location Performer Comment OPHTH 65292 [facility] 6 GRE GRE XM&EVAL COMPRHNSV ESTAB PT 1/> RADEX 82755 [place] [facility] ANKLE 6 MEDICAL JOSE COMPLETE IMAGING MINIMUM 3 ASS VIEWS CRTCHS E0114 ADVANCED CHEW UNDARM 6 TECHNOLOG NANCY OTH THAN IES INC WOOD PAIR PAD TIP&HNDGR IP RADIOLOGI 96211 [facility] C EXAM 6 [facility] CHEST 2 INC INC VIEWS FRONTAL&L ATERAL INJECTION J0696 [facility] GOYO 6 PHYSICIAN RIMA CEFTRIAXO S GROUP NE SODIUM PER 250 MG INJECTION J1040 [facility] GOYO 6 PHYSICIAN RIMA METHYLPRE S GROUP DNISOLONE ACETATE 80 MG RADIOLOGI 23550 [place] GARCIA ALL C 6 MEDICAL EXAMINATI IMAGING ON CHEST ASS SINGLE VIEW FRONTAL PRESSURIZ 69121 [facility] ED/NONPRE 6 [facility] SSURIZED INC INC INHALATIO N TREATMENT IAADI 38328 [facility] INFLUENZA 6 [facility] B VIRUS INC INC IAADI 12004 [facility] INFFLUENZ 6 [facility] A A VIRUS INC INC THERAPEUT 47379 [facility] PHYSICIAN RIMA PROPHYLAC S GROUP TIC/DX INJECTION SUBQ/IM URINE 67227 [facility] RO 6 PHYSICIAN DUSTIN TEST S GROUP VISUAL COLOR CMPRSN METHS OPHTH 81697 [facility] 5 GRE GRE XM&EVAL COMPRHNSV ESTAB PT 1/> OPHTH 84401 [facility] 4 GRE GRE XM&EVAL COMPRHNSV ESTAB PT 1/> DETERMINA 81251 [facility] TION 4 GRE GRE REFRACTIV E STATE CYTP C/V 87776 PICKLESIM PICKLESIM AUTO THIN 4 ER JR RENATE ER JR RENATE LYR PREPJ SCR MNL RESCR PHYS URNLS DIP 37917 OR STARR 4 DUSTIN DUSTIN STICK/TAB LET RGNT NON-AUTO W/O MICRSCP LOCM Q9967 [facility] ROB [phone] 3 [facility] MG/ML INC INC IODINE CONCENTRA TION PER ML 3D 34711 JUDSON JUDSON RENDERING 3 JOSE JOSE W/INTERP& [place] [address] [facility] ABDOMEN & 3 [facility] PELVIS INC INC W/CONTRAS T MATERIAL GONADOTRO 21742 [facility] PIN 3 [facility] CHORIONIC INC INC QUALITATI VE RADEX 58203 [facility] ROB SPINE 3 [facility] CERVICAL INC INC 4 OR 5 VIEWS RADEX 35579 JUDSON JUDSON SPINE 3 JOSE JOSE CERVICAL 6 OR MORE VIEWS OPHTH 84097 [facility] 3 GRE GRE XM&EVAL COMPRE NEW PT 1/> VST DETERMINA 19122 [facility] TION 3 GRE GRE REFRACTIV E STATE COLSC FLX 63858 [facility] ROB 3 [facility] W/REMOVAL INC [place] [address] PICKLESIM PICKLESIM SURG 3 ER JR RENATE ER JR RENATE PATHOLOGY GROSS&RIMA ROSCOPIC EXAM IMHISTOCH 56396 PICKLESIM PICKLESIM EM/CYTCHM 3 ER JR RENATE ER JR RENATE 1ST ANTIBODY STAIN PROCEDURE URINE 62679 RO STARR 3 DUSTIN DUSTIN TEST VISUAL COLOR CMPRSN METHS CYTP C/V 34326 PICKLESIM PICKLESIM AUTO THIN 3 ER JR RENATE ER JR RENATE LYR PREPJ SCR MNL RESCR PHYS URNLS DIP 60776 RO STARR 3 DUSTIN DUSTIN STICK/TAB LET RGNT NON-AUTO W/O MICRSCP SMR PRIM 62419 RO STARR SRC WET 2 DUSTIN DUSTIN [facility] AGT OPHTH 13903 [facility] 2 ANG ANG XM&EVAL COMPRHNSV ESTAB PT 1/> DETERMINA 10820 [facility] 2 ANG ANG REFRACTIV E STATE URNLS DIP 31879 RO STARR 1 DUSTIN DUSTIN STICK/TAB LET RGNT NON-AUTO W/O MICRSCP CYTP C/V 66219 PATHOLOGY PATHOLOGY AUTO THIN 1 & & LYR CYTOLOGY CYTOLOGY PREPJ SCR LAB LAB MNL RESCR PHYS OPHTH 28733 [facility] 1 VISION ANG XM&EVAL INTERMEDI ATE ESTAB PT OPHTH 89673 [facility] 1 VISION XM&EVAL COMPRE NEW PT 1/> VST INSERTION 39855 [facility] 0 [facility] INE [place] DEVICE IUD URINE 26975 [facility] 0 [facility] TEST CLINIC OF VISUAL [place] COLOR CMPRSN METHS L[place]GE J7302 W[facility] STARR STREL-RLS 0 [facility]ALTH [facility] E CLINIC OF INTRAUTER [place] N CNTRACPT 52 MG CONTRACEP A4267 [facility] ROB TIVE 0 [facility] SU[facility] CENTER CONDOM MALE EACH URINE 64626 [facility] ROB 0 [facility] TEST C[facility] CENTER VISUAL COLOR CMPRSN METHS IADNA 34255 [facility] ROB CHLAMYDIA 0 [facility] CENTER TRACHOMAT IS AMPLIFIED PROBE TQ CYTP 29517 PATHOLOGY PATHOLOGY CERV/VAG 0 & & AUTO THIN CYTOLOGY CYTOLOGY LAYER LAB LAB PREP MNL SCREEN CYTP 42529 PATHOLOGY PATHOLOGY CERVICAL/ 0 & & VAGINAL CYTOLOGY CYTOLOGY REQ LAB LAB INTERP PHYSICIAN DME A9900 [facility] SUP/ACCES 0 [email or web address] CENTER ISHMAEL/OTH HCPCS IADNA 29733 [facility] ROB NEISSERIA 0 [facility] CENTER GONORRHO[place] [address] [facility] LIPASE 0 [facility] INC INC FIBRIN 03429 [facility] DGRADJ 0 [facility] PRODUCTS INC INC D-DIMER QUAL/[place] [address] [facility] ROB AMYLASE 0 [facility] INC INC COMPREHEN 15898 [facility] SIVE 0 [facility] [place] [address] [facility] ANGIOGRAP 0 MEDICAL JOSE HY CHEST IMAGING W/CONTRAS ASS T/NONCONT RAST URINE 19449 [facility] ROB 0 [facility] TEST INC INC VISUAL COLOR CMPRSN METHS RADIOLOGI 26121 MARCOS JUDSON C EXAM 0 MEDICAL JOSE CHEST 2 IMAGING VIEWS ASS FRONTAL&L ATERAL URNLS DIP 85420 [facility] 0 [facility] STICK/TAB INC INC LET REAGENT AUTO MICROSCOP Y BLOOD 80100 [facility] ANDERSONON COUNT 0 [facility] COMPLETE INC INC AUTO&AUTO DIFRNTL WBC Encounters Encounter Start End Date Code Location Performer Type Date EMERGENCY 52796 FLXE LOVE 6 6 PHYSICIAN ERIKA DEPARTMEN S, [facility] T VISIT HIGH/URGE NT SEVERITY EMERGENCY 12567 [facility] GE[facility]O DEPT 6 6 PHYSICIAN RIMA VISIT S, PLLC HIGH SEVERITY& THREAT FUNCJ OFFICE 40394 [facility] GOYO OUTPATIEN 6 6 PHYSICIAN RIMA T VISIT S GROUP 15 MINUTES HOSPITAL [facility] - 6 6 [facility] OUTPATIEN INC T EMERGENCY 57163 [facility] 6 6 [facility] DEPARTMEN INC T VISIT LOW/MODER SEVERITY OFFICE 03717 [facility] OUTPATIEN 6 6 PHYSICIAN T VISIT S GROUP 15 MINUTES OFFICE 25683 [facility] FLORES OUTPATIEN 5 5 [facility] T VISIT HOSPITAL 15 MINUTES OFFICE 80868 [facility] RO OUTPATIEN 5 5 PHYSICIAN DUSTIN T VISIT S GROUP 15 MINUTES OFFICE 71008 [facility] FRYMJUAN DAVID OUTPATIEN 5 5 PHYSICIAN EUG T NEW 20 S GROUP MINUTES OFFICE 71127 SCIFRES SCIFRES OUTPATIEN 5 5 ANG ANG T VISIT 15 MINUTES PERIODIC 01535 RO STARR PREVENTIV 4 4 DUSTIN DUSTIN E MED EST PATIENT 18-39 YRS OFFICE 49983 RO STARR OUTPATIEN 4 4 DUSTIN DUSTIN T VISIT 15 MINUTES OFFICE 00474 RO STARR OUTPATIEN 3 3 DUSTIN DUSTIN T VISIT 25 MINUTES OFFICE 17052 SCHULSTAD SCHULSTAD OUTPATIEN 3 3 JENIFFER JENIFFER T VISIT 15 MINUTES OFFICE 26710 KAIA MARTI CONSULTAT 3 3 JESSICA RODRIGEZ NEW/ESTAB PATIENT 60 MIN HOSPITAL [facility] - 3 3 [facility] OUTPATIEN INC T OFFICE 68364 ROGER CHAUHANSTNBA OUTPATIEN 3 3 JENIFFER JENIFFER T VISIT 25 MINUTES OFFICE 12198 DIILA DOBBS OUTPATIEN 3 3 NISREEN NISREEN T VISIT 15 MINUTES HOSPITAL [facility] - 3 3 [facility] OUTPATIEN INC T OFFICE 38367 RO STARR OUTPATIEN 3 3 DUSTIN DUSTIN T VISIT 15 MINUTES OFFICE 62167 RO STARR OUTPATIEN 3 3 DUSTIN DUSTIN T VISIT 15 MINUTES OFFICE 95743 RO STARR OUTPATIEN 3 3 DUSTIN DUSTIN T VISIT 15 MINUTES EMERGENCY 00079 [facility] 3 3 [facility] DEPARTMEN INC T VISIT LOW/MODER SEVERITY EMERGENCY 33773 [facility] BENAVIDEZ 3 [address] [facility] T VISIT HIGH/URGE NT SEVERITY HOSPITAL [facility] - 3 3 [facility] OUTPAT[facility]EN INC T OFFICE 09699 RO STARR OUTPATIEN 3 3 DUSTIN DUSTIN T VISIT 15 MINUTES OFFICE 95294 RO STARR OUTPATIEN 3 3 DUSTIN DUSTIN T VISIT 15 MINUTES OFFICE 60130 ROGER DURAN OUTPATIEN 3 3 JENIFFER JENIFFER T VISIT 10 MINUTES HOSPITAL [facility] - 3 3 [facility] OUTPATIEN INC T OFFICE 09539 RO STARR OUTPATIEN 3 3 DUSTIN DUSTIN T VISIT 15 MINUTES OFFICE 89541 DILIA DOBBS OUTPATIEN 3 3 NISREEN NISREEN T NEW 30 MINUTES PERIODIC 17093 RO STARR PREVENTIV 3 3 DUSTIN DUSTIN E MED EST PATIENT 18-39 YRS OFFICE 53607 RO STARR OUTPATIEN 2 2 DUSTIN DUSTIN T VISIT 15 MINUTES OFFICE 89439 RO STARR OUTPATIEN 2 2 DUSTIN DUSTIN T VISIT 15 MINUTES OFFICE 41736 RO STARR OUTPATIEN 2 2 DUSTIN DUSTIN T VISIT 15 MINUTES OFFICE 87190 RO STARR OUTPATIEN 2 2 UDSTIN DUSTIN T VISIT 15 MINUTES OFFICE 99525 RO KIME OUTPATIEN 2 2 DUSTIN DUSTIN T VISIT 15 MINUTES OFFICE 99793 RO STARR OUTPATIEN 2 2 DUSTIN DUSTIN T VISIT 15 MINUTES OFFICE 76876 RO STARR OUTPATIEN 2 2 DUSTIN DUSTIN T VISIT 15 MINUTES PERIODIC 40854 RO STARR PREVENTIV 1 1 DUSTIN DUSTIN E MED EST PATIENT 18-39 YRS OFFICE 18771 RUFINA AGUILLON SURJIT OUTPATIEN 1 1 VISION T VISIT 10 MINUTES INITIAL 01439 [facility] ROB PREVENTIV 0 0 [facility] MEDICINE NEW PT AGE 18-39YRS [facility] D[facility] - 0 0 [facility] OUTPATIEN INC T EMERGENCY 86832 [facility] GENAO DEPT 0 0 EMERGENCY RIMA VISIT SERVICES HIGH SEVERITY& THREAT FUNCJ EMERGENCY 22182 [facility] DEPT 0 0 [facility] VISIT INC HIGH SEVERITY& THREAT FUNCJ
--- OUTSIDE RECORDS SUMMARY | 2017-02-21 08:02 | External Medical Summary Rpt | CCD ---
Demographics Preferred Language Puerto Rican Marital Status Unknown Yazidi Affiliation Unknown Race Unknown Ethnic Group Unknown Author Author , HAYLEY HARDY Address Unknown Phone Immunization No patient found.
--- OUTSIDE RECORDS SUMMARY | 2017-02-21 08:03 | External Medical Summary Rpt ---
[...] data [Presen [place]6 ce] in [address], specime [place], [place] Probe & [id number] target 69Lab Directo amplifi r: cation Vincent method Allen sigala PhD, Phone: [phone] Comprehensive metabolic 2000 panel in Serum or [...]
--- OUTSIDE RECORDS SUMMARY | 2017-02-21 08:03 | External Medical Summary Rpt ---
[...] data [Presen [place] ce] in [address], specime [place], [place] Probe & [id number] target 69Lab Directo amplifi r: cation Vincent method Allen sigala PhD, Phone: [phone] Comprehensive metabolic 2000 panel in Serum or [...]
== END 2017-02-18 10:13 | disposition home or self-care (01) ==
LOC: UTC 09:08
DX: T22.011A Burn of unspecified degree of right forearm, initial encounter (principal); X17.XXXA Contact with hot engines, machinery and tools, initial encounter; Y92.63 Factory as the place of occurrence of the external cause; Y99.0 Civilian activity done for income or pay; Z88.6 Allergy status to analgesic agent; Z88.2 Allergy status to sulfonamides; F17.210 Nicotine dependence, cigarettes, uncomplicated